=== PATIENT | female | born 1935 | race Caucasian/White ===

== ENCOUNTER 2020-09-10 17:11 | Observation (INO) | payer MEDICARE, MEDICAID, SELFPAY ==
[2020-09-10] VITALS (9 sets, daily range): BP systolic 161–198; BP diastolic 63–94; PULSE 57–71; RESP 14–20; TEMP 36.8; O2SAT 95–100; BMI 42.9; BMI 29.7
--- NOTE | 2020-09-10 17:13 | HMH.EDGENADL ---
ED Disposition Clinical Impression: CHF exacerbation Qualifiers: Heart failure type: unspecified Qualified Code(s): I50.9 - Heart failure, unspecified Disposition: Admitted As Inpatient Condition on Discharge: Good Instructions: Heart Failure Referrals: Avelino Anderson MD [Primary Care Provider] - - Critical Care Critical Care Time: No Attestation: On , the high probability of a clinically significant, sudden or life threatening deterioration of the following system(s) required my full and direct attention, intervention and personal management. The time I documented below is in addition to time spent performing reported procedures but includes the following listed in this critical care notation. Medical Decision Making - Medical Records Medical records reviewed: Yes: I reviewed the patient's medical records. - Paul Inquiry Pt receiving controlled substance: No Vital Signs: 09/10/20 17:11 09/10/20 18:00 Pulse Rate [Left Radial] 66 57 L Respiratory Rate 18 Blood Pressure [Right Arm] 198/78 H 193/77 H Blood Pressure Mean [Right Arm] 118 115 Blood Pressure Source [Right Arm] Automatic Cuff Automatic Cuff Blood Pressure Position [Right Arm] Sitting Sitting 02 Sat by Pulse Oximetry 100 100 Oxygen Delivery Method Nasal Cannula Nasal Cannula Oxygen Flow Rate (LPM) 3 - Lab Data Lab Results 09/10/20 17:25: WBC 4.7 L, RBC 4.63, Hgb 15.1, Hct 48.3 H, MCV 104.3 H, MCH 32.7 H, MCHC 31.4 L, RDW 14.7, Plt Count 165, MPV 8.2, Neut % (Auto) 63.5, Lymph % (Auto) 24.0, [place] % (Auto) 5.3, Eos % (Auto) 6.1, Baso % (Auto) 1.1, Neut # (Auto) 3.0, Lymph # (Auto) 1.1, [place] # (Auto) 0.3, Eos # (Auto) 0.3, Baso # (Auto) 0.1 09/10/20 17:25: Sodium 139, Potassium 4.5, Chloride 107, Carbon Dioxide 29, Anion Gap 7.5, BUN 21 H, Creatinine 0.90, Estimated Creat Clear 36, Estimated GFR 60, Est GFR ( Amer) 72, Glucose 237 H, Calcium 10.6 H, Troponin I 0.03, NT-Pro-B Natriuret Pep 2490 H 12/27/20 17:25: SARS-CoV-2 IgG Ab (Rapid) Negative, SARS-CoV-2 IgM Ab (Rapid) Negative 09/10/20 17:25: Total Bilirubin 0.6, Direct Bilirubin 0.3, Conjugated Bilirubin 0.0, Indirect Bilirubin 0.3, Unconjugated Bilirubin 0.3, AST 56 H, ALT 21, Alkaline Phosphatase 202 H, Total Protein 6.7, Albumin 3.3 L 09/10/20 17:49: Urine Color Yellow, Urine Appearance Clear, Urine pH 5.5, Ur Specific [place] >= 1.030, Urine Protein 2+, Urine Glucose (UA) 2+, Urine Ketones Negative, Urine Blood Trace-i, Urine Nitrate Negative, Urine Bilirubin Negative, Urine Urobilinogen 0.2, Ur Leukocyte Esterase Negative, Urine RBC Occasional, Amorphous Sediment Trace Result diagrams: 09/10/20 17:25 09/10/20 17:25 Orders (Tests/Meds): ED MEDICATIONS Discontinued Medications Generic Name Dose Route Start Last Admin Trade Name Freq PRN Reason Stop Dose Admin Nitroglycerin 0.5 gm 09/10/20 17:41 09/10/20 17:52 Nitroglycerin 1 Gm Ointment TD 09/10/20 17:42 0.5 gm ONCE ONE Administration ORDERS Category Date Time Status XR chest portable Stat Exams 09/10/20 17:14 Taken Full Resp Panel w/COVID ([facility]) Routine Lab 09/10/20 18:30 Received Troponin I Q3H Lab 09/10/20 20:15 Ordered Troponin I Q3H Lab 09/10/20 23:15 Ordered Medical Decision Narrative: Patient presents with subjective complaints of dyspnea. No hypoxia noted. EKG obtained immediately on arrival demonstrates no acute ischemic process. Cardiac enzymes will also be obtained to further work-up atypical ACS. X-ray will be obtained to evaluate for overt pulmonary edema, pleural effusions, or any consolidation/infiltrate that could be contributing. Basic lab work to ensure no hematologic or metabolic disturbance will also be obtained with a basic natruretic peptide for further work-up of cardiac dysfunction. I did do a bedside ultrasound and there does appear to be B-lines bilaterally with mild to moderately reduced ejection fraction. This is consistent with patient's presentation as she is
--- NOTE | 2020-09-10 17:14 | ECG_ITS ---
APPROVED REPORT Exam: Resting ECG HR:64 bpm ECG Measurements Heart Rate 64 AXES QRSd 94 QRS -71 QT 422 T 37 QTc 435 Conclusion Atrial fibrillation Left axis deviation Anterolateral infarct, age undetermined Abnormal ECG Electronically signed by : Avelino Anderson, 09/11/2020 07:18:44
--- NOTE | 2020-09-10 17:14 | XR_ITS ---
PROCEDURE: XR CHEST PORTABLE Referring Doctor: Raffaele Shearer Patient Age:85Y CLINICAL HISTORY: dyspnea CHF exacerbation COMPARISON: No exams were available for comparison films for comparison FINDINGS: AP portable upright chest-With no previous CXR for comparison Infiltrate at both lung bases along with bilateral pleural effusions obscure right and left hemidiaphragm. Cardiomegaly. I suspect there is some vascular congestion a could reflect component of CHF but however I would be concerned that there is additional pneumonic infiltrate accounting for the patchy infiltrate at the suprahilar region and RUL; as well as infiltrate/consolidation at the right infrahilar region and right lung base but The left chest the left upper lung brown are clear again we see density at the retrocardiac region reflecting pleural effusion and likely airspace disease/consolidation at the medial left lung base as. No prior studies for comparison. The sushant and mediastinal structures satisfactory. Prominent arthritic changes of both shoulders. Ribs grossly unremarkable of otherwise monitoring and evaluation advisor leads in place. . Chest. IMPRESSION: suspect of combination bilateral pneumonia (most pronounced right lung), along with suspect associated CHF-correlation required. Bibasilar airspace disease,, bilateral pleural effusions.-Features obscures the diaphragm bilaterally. . Bibasilar consolidation of pronounced at the right lung base. However additionally at right lung there is suprahilar infiltrate, along with patchy infiltrates elsewhere at right mid lung and right lower lobe. . Vascular engorgement. Cardiomegaly. Dictated by: Juan Luis Bird MD 09/10/2020 20:26 Juan Luis Bird MD in [place] 09/10/2020 20:26
[2020-09-10 17:39] LABS: Basophils # 0.1 K/mm3 (0-0.2); Basophils % 1.1 % (0.1-2.0); Eosinophils # 0.3 K/mm3 (0.0-0.4); Eosinophils % 6.1 % (0.1-12.0); Hematocrit 48.3 % (37.0-47.0); Hemoglobin 15.1 g/dL (12.2-16.2); Lymphocytes # 1.1 K/mm3 (0.7-4.5); Mean Corpuscular HGB Conc 31.4 g/dL (31.8-35.4); Mean Corpuscular Hemoglobin 32.7 pg (27.0-31.2); Mean Corpuscular Volume 104.3 fl (81-99); Mean Platelet Volume 8.2 fl (7.4-10.4); Monocytes # 0.3 K/mm3 (0.1-1.0); Monocytes % 5.3 % (1.7-9.3); Neutrophils % 63.5 % (37.0-80.0); Platelet Count 165 K/mm3 (142-424); Red Blood Count 4.63 M/mm3 (4.20-5.40); Red Cell Distribution Width 14.7 % (11.5-17.5); White Blood Count 4.7 K/mm3 (4.8-10.8)
[2020-09-10 17:49] LABS: Chloride 107 mmol/L (98-107); Potassium 4.5 mmoL/L (3.5-5.1); Sodium 139 mmol/L (136-145)
[2020-09-10 17:52] LABS: Anion Gap 7.5 mEq/L (5-15); Bilirubin,Unconjugated 0.3 mg/dL (0.0-1.1); Blood Urea Nitrogen 21 mg/dl (7-17); Calcium 10.6 mg/dl (8.4-10.2); Carbon Dioxide 29 mmol/L (22.0-30.0); Creatinine Clearance Estimated 36 mL/min (50-200); Estimated Glomerular Filt Rate 60 ml/min (>60); GFR (African American) 72 ML/MIN (>60); Glucose 237 mg/dl (74-100)
[2020-09-10 17:53] LABS: Alanine Aminotransferase 21 U/L (12-78); Albumin Level 3.3 g/dl (3.5-5.0); Alkaline Phosphatase 202 U/L (38-126); Aspartate Amino Transferase 56 U/L (14-36); Bilirubin,Direct 0.3 mg/dl (0.0-0.4); Bilirubin,Indirect 0.3 mg/dL (0.0-0.9); Bilirubin,Total 0.6 mg/dl (0.2-1.3); Total Protein,Serum 6.7 g/dl (6.3-8.2)
[2020-09-10 18:02] LABS: NT Pro Brain Natriuretic Pep. 2490 pg/mL (0-450)
[2020-09-10 18:05] LABS: Coronavirus 19 IgG Antibody Negative (Negative); Coronavirus 19 IgM Antibody Negative (Negative); Troponin I 0.03 ng/ml (0.00-0.034)
[2020-09-10 18:14] LABS: Microscopic, Urine URINE MICROSCOPIC (MICROSCOPIC)
[2020-09-10 18:15] LABS: Appearance,Urine CLEAR (Clear); Bilirubin,Urine Negative (Negative); Blood, Urine TRACE-I (Negative); Color,Urine YELLOW (Yellow); Glucose,Urine (UA) 2+ (Negative); Ketones,Urine Negative (Negative); Leukocyte Esterase,Urine Negative (Negative); Nitrate,Urine Negative (Negative); PH,Urine 5.5 (5.0-8.5); Protein,Urine 2+ (Negative); Specific Gravity, Urine >= 1.030 (1.005-1.030); Urobilinogen,Urine 0.2 EU/dl (0.2)
[2020-09-10 18:18] LABS: Amorphous Sediment,Urine Trace /lpf; RBC,Urine Occasional #/hpf (0-3)
[2020-09-10 18:32] LABS: Adenovirus,PCR Not Detected (NotDetected); Bordetella Pertussis Not Detected (NotDetected); Chlamydophila Pneumoniae, PCR Not Detected (NotDetected); Coronavirus 19, PCR Not Detected (NotDetected); Coronavirus 229E Not Detected (NotDetected); Coronavirus NL63 Not Detected (NotDetected); Coronavirus OC43 Not Detected (NotDetected); Coronovirus HKU1,PCR Not Detected (NotDetected); Human Metapneumovirus Not Detected (NotDetected); Influenza A, PCR Not Detected (NotDetected); Influenza AH1, 2009 Not Detected (NotDetected); Influenza AH1, PCR Not Detected (NotDetected); Influenza AH3,PCR Not Detected (NotDetected); Influenza B, PCR Not Detected (NotDetected); Mycoplasma Pneumoniae, PCR Not Detected (NotDetected); Parainfluenza 1, PCR Not Detected (NotDetected); Parainfluenza 2, PCR Not Detected (NotDetected); Parainfluenza 3, PCR Not Detected (NotDetected); Parainfluenza 4, PCR Not Detected (NotDetected); Respiratory Syncytial Virus Not Detected (NotDetected); Rhinovirus/Enterovirus Not Detected (NotDetected)
--- NOTE | 2020-09-10 20:27 | PC.NURSE ---
patient up to floor via stretcher.
[2020-09-10 21:13] LABS: Troponin I 0.03 ng/ml (0.00-0.034)
[2020-09-10 21:35] LABS: POC Glucose,Bedside 147 (70-110)
[2020-09-11] VITALS: BP 190/70; PULSE 62; PULSE 70; RESP 18; TEMP 36.7; O2SAT 94
[2020-09-11 00:11] LABS: Troponin I 0.03 ng/ml (0.00-0.034)
--- NOTE | 2020-09-11 00:32 | PC.NURSE ---
nurse made aware of blood pressure
[2020-09-11 04:00] VITALS: BP 150/85; PULSE 62; PULSE 70; RESP 20; TEMP 36.3; O2SAT 92
[2020-09-11 04:31] VITALS: BMI 28.7
--- NOTE | 2020-09-11 05:30 | PC.NURSE ---
pt has rested on and off t/o shift, wilkinson patent and draining clear pale urine, has had 3500 mL out so far this shift, no complaints of SOA or chest pain, has remained on room air with O2 sats 92-96 %, bus driver/monitor shows controlled afib, HR 62-71, seizure pads on bed, pt did complain of leg cramps early this morning, solution maker contacted and new orders received
--- NOTE | 2020-09-11 05:45 | PC.NURSE ---
pt has rested on and off t/o shift, lung sounds diminished, wilkinson patent and draining clear pale urine, 3500 mL out so far this shift, no complaints of SOA or chest pain since arriving to floor, has remained on room air with O2 sats 92-96%, monitor and storage bin tender shows controlled a fib, HR 62-71, seizure pads on bed due to history of seizures, pt did complain of leg cramps this morning, warm blankets applied to legs and pt is now resting quietly
--- NOTE | 2020-09-11 06:00 | XR_ITS ---
PROCEDURE: XR CHEST PORTABLE CLINICAL HISTORY: CHF exacerbqation COMPARISON: CR XR CHEST PORTABLE from 09/10/2020 FINDINGS: There is a slight interval improvement cardiovascular status compared to yesterday's study there is less vascular congestion noted. Mild thickening of the minor fissure is again noted. Gross generalized cardiomegaly is again noted with biventricular enlargement. Somewhat ill-defined opacities are seen in both perihilar regions and lower lobes most consistent with pneumonic infiltrates with some areas have a ground-glass appearance. Shoulder suggest clinical correlation for frozen shoulder. IMPRESSION: Interval improvement in the patient's congestive heart failure from yesterday's study, diffuse ill-defined bilateral perihilar and lower lobe opacities worrisome for pneumonic infiltrates and Covid 19 should be considered Dictated by: Dr. Cal Escalante MD 09/11/2020 08:04 Dr. Cal Escalante MD in [place] 09/11/2020 08:04
[2020-09-11 06:41] LABS: Chloride 105 mmol/L (98-107); Potassium 4.2 mmoL/L (3.5-5.1); Sodium 138 mmol/L (136-145)
[2020-09-11 06:44] LABS: POC Glucose,Bedside 199 (70-110)
[2020-09-11 06:44] LABS: Anion Gap 5.2 mEq/L (5-15); Blood Urea Nitrogen 21 mg/dl (7-17); Calcium 10.4 mg/dl (8.4-10.2); Carbon Dioxide 32 mmol/L (22.0-30.0); Creatinine Clearance Estimated 50 mL/min (50-200); Estimated Glomerular Filt Rate 60 ml/min (>60); GFR (African American) 72 ML/MIN (>60); Glucose 252 mg/dl (74-100)
[2020-09-11 06:48] LABS: Basophils % 0.7 % (0.1-2.0); Eosinophils # 0.3 K/mm3 (0.0-0.4); Eosinophils % 6.6 % (0.1-12.0); Hemoglobin 14.5 g/dL (12.2-16.2); Lymphocytes # 0.9 K/mm3 (0.7-4.5); Lymphocytes % 19.8 % (10-50); Mean Corpuscular HGB Conc 32.9 g/dL (31.8-35.4); Mean Corpuscular Hemoglobin 33.4 pg (27.0-31.2); Mean Corpuscular Volume 101.5 fl (81-99); Mean Platelet Volume 8.2 fl (7.4-10.4); Monocytes # 0.4 K/mm3 (0.1-1.0); Monocytes % 7.6 % (1.7-9.3); Neutrophils % 65.4 % (37.0-80.0); Platelet Count 161 K/mm3 (142-424); Red Blood Count 4.34 M/mm3 (4.20-5.40); Red Cell Distribution Width 14.8 % (11.5-17.5); White Blood Count 4.6 K/mm3 (4.8-10.8)
[2020-09-11 06:53] LABS: NT Pro Brain Natriuretic Pep. 2700 pg/mL (0-450)
--- NOTE | 2020-09-11 07:17 | P.CONPHA_ITS ---
[facility] Pharmacy VTE Monitoring - Patient Demographics Admission date: 09/10/20 Report Date: 09/11/20 Time: 07:17 Allergies/Adverse Reactions: Patient Allergies Penicillins [PENICILLINS] Allergy (Unknown, Verified 09/11/20 02:44) REDNESS/RASH Height: 1.63 m Weight: 76.345 kg Patient Problems: Current Active Problems CHF exacerbation (Acute) - VTE Risk Labs: VTE Related Lab Results Hgb 14.5 g/dL (12.2-16.2) 09/11/20 05:48 Hct 44.0 % (37.0-47.0) 09/11/20 05:48 Plt Count 161 K/mm3 (142-424) 09/11/20 05:48 BUN 21 mg/dl (7-17) H 09/11/20 05:48 Creatinine 0.90 mg/dl (0.52-1.04) 09/11/20 05:48 Estimated Creat Clear 50 mL/min (50-200) 09/11/20 05:48 VTE Score: 9 VTE Risk Level: Moderate Risk - Prophylaxis VTE Prophylaxis Ordered?: Yes Types of VTE Prophylaxis: TEDS Knee High, Pharmacological Location of Applied Device: Bilateral Lower Extremeties Pharmacologic Type: Other (ELIQUIS)
[2020-09-11 07:25] VITALS: BP 179/70; PULSE 64; RESP 16; TEMP 36.6; O2SAT 94
--- NOTE | 2020-09-11 07:52 | HMH.PHAINT ---
MEDICATION RECONCILIATION COMPLETED ON PATIENT USING MAR FROM RETIREMENT. -JER NICOLAS, EULAD
[2020-09-11 08:00] VITALS: PULSE 64; RESP 16; O2SAT 94
--- NOTE | 2020-09-11 08:12 | HMH.HPDC ---
General - General Admission date:: 09/10/20 Discharge date: 09/11/20 *Admission Date: 09/10/20 *Chief complaint: Dyspnea *History of present illness: Patient presents with subjective complaints of dyspnea. No hypoxia noted. EKG obtained immediately on arrival demonstrates no acute ischemic process. Cardiac enzymes will also be obtained to further work-up atypical ACS. X-ray will be obtained to evaluate for overt pulmonary edema, pleural effusions, or any consolidation/infiltrate that could be contributing. Basic lab work to ensure no hematologic or metabolic disturbance will also be obtained with a basic natruretic peptide for further work-up of cardiac dysfunction. I did do a bedside ultrasound and there does appear to be B-lines bilaterally with mild to moderately reduced ejection fraction. This is consistent with patient's presentation as she is hypertensive, with bilateral pitting edema. Nitroglycerin topical paste applied for preload/afterload reduction. She is tachypneic with mild conversational dyspnea without hypoxia. Work-up will continue as outlined above. I did consider pulmonary embolus but at this time I do believe cardiac dysfunction is more than likely culprit. BNP significantly elevated. Bilateral pleural effusions noted on x-ray. Patient received 40 mg of p.o. Lasix at facility prior to EMS being called. She has diuresed about 800 cc of urine. At this time, I would not administer IV diuretics this patient is already gently diuresing. I do believe based on her weight gain recently, dyspnea, and multiple medical comorbidities admission to the hospital for gentle IV diuresis is indicated. I discussed this with patient and family at bedside and all parties are in agreement. I discussed this with on-call provider who also was in agreement after careful discussion. Patient will be admitted to the hospital. Above note per emergency department physician. Patient recently admitted [facility] the [facility] a stay at [facility] for a humerus fracture. Transferred over from the nursing of the day because of the above complaints. When I examined her this morning after a brisk diuresis she feels much better, her breathing is better and she has no pains and has eaten breakfast well. [facility] History I have reviewed the patient's past medical history: Yes Medical History: Reports:: Atrial Fibrillation, Diabetes Mellitus Type 2, Hypertension Denies:: Cancer, Diabetes Mellitus Type 1, Internal Pacemaker, MRSA *Have you ever received a pneumonia vaccine?: No *Have you received a flu vaccine this season?: No Laterality Cases: Right: Total Knee Replacement Other Surgeries: No: Pacemaker Amputation: No - *Social History Alcohol Intake: never *Occupational Status:: retired Housing: penitentiary *Travel in the last 8 weeks: None Family Hx:: Unable to obtain Review of Systems - Review of Systems Review of systems:: pertinent systems reviewed and negative unless documented below Difficult history secondary to patient's hard of hearing status but no other complaints this morning Exam Vital signs and Labs for Last 24 Hours: Temp Pulse Resp BP Pulse Ox 97.8 F 64 16 179/70 H 94 L 09/11/20 07:25 09/11/20 07:25 09/11/20 07:25 09/11/20 07:25 09/11/20 07:25 Laboratory Results - last 24 hr 09/10/20 17:25: WBC 4.7 L, RBC 4.63, Hgb 15.1, Hct 48.3 H, MCV 104.3 H, MCH 32.7 H, MCHC 31.4 L, RDW 14.7, Plt Count 165, MPV 8.2, Neut % (Auto) 63.5, Lymph % (Auto) 24.0, [place] % (Auto) 5.3, Eos % (Auto) 6.1, Baso % (Auto) 1.1, Neut # (Auto) 3.0, Lymph # (Auto) 1.1, [place] # (Auto) 0.3, Eos # (Auto) 0.3, Baso # (Auto) 0.1 09/10/20 17:25: Sodium 139, Potassium 4.5, Chloride 107, Carbon Dioxide 29, Anion Gap 7.5, BUN 21 H, Creatinine 0.90, Estimated Creat Clear 36, Estimated GFR 60, Est GFR ( Amer) 72, Glucose 237 H, Calcium 10.6 H, Troponin I 0.03, NT-Pro-B Natriuret Pep 2490 H 09/10/20 17:25: SARS-CoV-2
--- NOTE | 2020-09-11 08:19 | DIET.NUTRFU ---
Nutrition consult completed to best ability, pt not appropriate for in depth diet education dt cognitive ability/age. Pt given education on low sodium/heart healthy and diabetic diet.
[2020-09-11 08:21] VITALS: BMI 28.5
--- NOTE | 2020-09-11 10:33 | SW/DCPLANNER ---
PATIENT IS DISCHARGING BACK TO [facility] TODAY AND I HAVE FAXED SIGNED DISCHARGE SUMMARY AND COVID RESULTS... SPOKE WITH [employer]ER AND SHE SAID THEY ARE EXPECTING HER RETURN..
== END 2020-09-11 10:15 ==
LOC: ER 18:41 → 2ND 19:00
PROVIDERS: Admitting Provider Emergency Medicine; Emergency Provider Emergency Medicine; PCP Internal Medicine Adolescent Medicine; Visit Provider Internal Medicine Adolescent Medicine
DX: I11.0 Hypertensive heart disease with heart failure (principal); I50.9 Heart failure, unspecified; I48.0 Paroxysmal atrial fibrillation; J44.9 Chronic obstructive pulmonary disease, unspecified; G40.409 Other generalized epilepsy and epileptic syndromes, not intractable, without status epilepticus; S32.434D Nondisplaced fracture of anterior column [iliopubic] of right acetabulum, subsequent encounter for fracture with routine healing; Z96.651 Presence of right artificial knee joint; Z88.0 Allergy status to penicillin; Z79.4 Long term (current) use of insulin; Z79.01 Long term (current) use of anticoagulants; Z79.899 Other long term (current) drug therapy
CPT/HCPCS: 36415; 71045; 80048; 80076; 81001; 82962; 83880; 84484; 85025; 86328; 87581; 87633; 87798; 93005; 96374; 99284; G0378

== ENCOUNTER 2020-10-03 21:37 | Emergency (ER) | payer MEDICARE, MEDICAID, SELFPAY ==
[2020-10-03 21:37] VITALS: BMI 29.1
--- NOTE | 2020-10-03 21:45 | XR_ITS ---
PROCEDURE: XR CHEST PORTABLE CLINICAL HISTORY: seizure COMPARISON: CR XR CHEST PORTABLE from 09/10/2020 CR XR CHEST PORTABLE from 09/11/2020 FINDINGS: There is cardiomegaly without failure. The lungs are clear without infiltrates, suspicious nodules, or pleural effusions. No acute bony abnormalities. IMPRESSION: Cardiomegaly otherwise negative Dictated by: Thad Darling MD 10/04/2020 06:21 Thad Darling MD in [place] 10/04/2020 06:21
--- NOTE | 2020-10-03 21:45 | CT_ITS ---
PROCEDURE: CT HEAD/BRAIN WO CON CLINICAL INDICATION: Seizure Seizures, syncope COMPARISON: No exams were available for comparison TECHNIQUE: Axial images obtained. All CT scans at the facility use one or more dose reduction, viz: automated exposure control, ma/kV adjustment per patient size (including targeted exams where dose is matched to indication, i.e. head), or iterative reconstruction technique. FINDINGS: No midline shift, mass effect, intracranial hemorrhage, hydrocephalus, or extra-axial fluid collection is evident. There is generalized atrophy with hypoattenuation of the periventricular white matter consistent with microangiopathic changes. The calvarium has an unremarkable appearance. No mastoid effusion. No sinus air-fluid level. IMPRESSION: No acute intracranial finding Dictated by: Thad Darling MD 10/04/2020 07:20 Thad Darling MD in [place] 10/04/2020 07:20
--- NOTE | 2020-10-03 21:45 | XR_ITS ---
PROCEDURE: XR PELVIS 1-2V CLINICAL INDICATION: seizure Right hip pain COMPARISON: No exams were available for comparison TECHNIQUE: XR Pelvis AP View FINDINGS: There are no previous exams available for comparison. A right intramedullary tigist is present within the proximal femur. There is a healing fracture involving the junction of the right superior pubic ramus with the ischial in and also 1 involving the right inferior pubic ramus. In addition, there is a minimally fracture involving the the left superior pubic ramus medially age indeterminate. Osteoarthritic changes of both hips. No lytic or blastic change. IMPRESSION: Bilateral pubic rami fractures as described above. The fractures on the right are old. The left superior pubic ramus fracture is age indeterminate. Dictated by: Thad Darling MD 10/04/2020 06:20 Thad Darling MD in [place] 10/04/2020 06:20
--- NOTE | 2020-10-03 21:48 | CT_ITS ---
PROCEDURE: CT CERVICAL SPINE WO CON CLINICAL INDICATION: seizure Pain, neck injury COMPARISON: No exams were available for comparison TECHNIQUE: Axial images obtained with sagittal and coronal reformats. All CT scans at the facility use one or more dose reduction, viz: automated exposure control, ma/kV adjustment per patient size (including targeted exams where dose is matched to indication, i.e. head), or iterative reconstruction technique. Axial spiral CT scanning performed of the cervical spine beginning at the base of the skull and continuing to the upper T-spine. 3-D multiplanar reconstruction with 3-D manipulation of volumetric data set in image rendering was completed by the radiologist and/or technologist with the supervision of the radiologist on independent workstation. FINDINGS: There is an old fracture at the base of the odontoid process with nonunion consistent with a type 2 fracture. Soft tissue calcification noted along the dorsal aspect of odontoid. Multilevel cervical spondylosis. 3 mm anterolisthesis C3 on C4 and 2 mm anterolisthesis C4 on C5. Facet arthropathy and uncovertebral arthropathy. Bilateral foraminal narrowing at C3-C4 C4-C5 C5-C6 and C6-C7. Degenerative disc disease C5-C6 and C6-C7. There is exaggeration of the upper thoracic kyphosis. No acute fracture or dislocation. IMPRESSION: 1. 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 2. No acute fracture. 3. Multilevel cervical spondylosis as described above. Dictated by: Thad Darling MD 10/04/2020 07:31 Thad Darling MD in [place] 10/04/2020 07:31
[2020-10-03 21:50] VITALS: BP 205/76; PULSE 62; RESP 18; TEMP 36.8; O2SAT 97; BMI 29.1
[2020-10-03 22:00] VITALS: BP 209/76; PULSE 66; RESP 15; O2SAT 99
--- NOTE | 2020-10-03 22:28 | PC.NURSE ---
assisted to bathroom. ambulated approx 40 feet without incident and standby-minimal assist only. vss. removed soiled clothing and covered in warm blankets. radiology technologist at bedside at this time.
[2020-10-03 22:30] VITALS: BP 197/78; PULSE 68; RESP 17; O2SAT 98
--- NOTE | 2020-10-03 22:31 | HMH.EDSEIZ ---
ED Disposition Clinical Impression: Epileptic seizure Qualifiers: Epilepsy type: unspecified Intractability: not intractable Status epilepticus: without status epilepticus Qualified Code(s): G40.909 - Epilepsy, unspecified, not intractable, without status epilepticus UTI (urinary tract infection) Qualifiers: Urinary tract infection type: site unspecified Hematuria presence: without hematuria Qualified Code(s): N39.0 - Urinary tract infection, site not specified Disposition: Home, Self-Care Condition on Discharge: Good Instructions: DI for Seizure Disorder -- Adult Additional Instructions: fluids and call pcp about urine culture Prescriptions: levoFLOXacin [Levaquin 500mg tab] 500 mg PO DAILY #7 tab Transmission Status: Pending to [facility] Referrals: Avelino Anderson MD [Primary Care Provider] - - Critical Care Critical Care Time: No Attestation: On 10/03/20, the high probability of a clinically significant, sudden or life threatening deterioration of the following system(s) required my full and direct attention, intervention and personal management. The time I documented below is in addition to time spent performing reported procedures but includes the following listed in this critical care notation. Medical Decision Making - Medical Records Medical records reviewed: Yes: I reviewed the patient's medical records. - Paul Inquiry Pt receiving controlled substance: No Vital Signs: 10/03/20 21:50 10/03/20 22:00 10/03/20 22:30 Temperature 98.2 F Temperature Source Oral Pulse Rate [Right] 62 66 68 Respiratory Rate 18 15 17 Blood Pressure [Right Arm] 205/76 H 209/76 H 197/78 H Blood Pressure Mean [Right Arm] 119 120 117 Blood Pressure Source [Right Arm] Automatic Cuff Automatic Cuff Automatic Cuff Blood Pressure Position [Right Arm] Supine Supine Supine 02 Sat by Pulse Oximetry 97 99 98 Oxygen Delivery Method Room Air Room Air Room Air 10/03/20 23:00 10/03/20 23:30 Temperature Temperature Source Pulse Rate [Right] 66 69 Respiratory Rate 17 17 Blood Pressure [Right Arm] 194/81 H 199/78 H Blood Pressure Mean [Right Arm] 118 118 Blood Pressure Source [Right Arm] Automatic Cuff Automatic Cuff Blood Pressure Position [Right Arm] Supine Supine 02 Sat by Pulse Oximetry 98 98 Oxygen Delivery Method Room Air Room Air - Lab Data Lab results reviewed: Yes: I reviewed the patient's lab results. Lab Results 10/03/20 23:30: WBC 7.7, RBC 4.54, Hgb 15.0, Hct 44.5, MCV 98.1, MCH 33.1 H, MCHC 33.7, RDW 14.3, Plt Count 180, MPV 7.8, Neut % (Auto) 76.5, Lymph % (Auto) 15.7, [place] % (Auto) 5.2, Eos % (Auto) 1.9, Baso % (Auto) 0.7, Neut # (Auto) 5.9, Lymph # (Auto) 1.2, [place] # (Auto) 0.4, Eos # (Auto) 0.2, Baso # (Auto) 0.1, ESR 50 H 10/03/20 23:30: Sodium 135 L, Potassium 4.5, Chloride 102, Carbon Dioxide 27, Anion Gap 10.5, BUN 24 H, Creatinine 0.80, Estimated Creat Clear 52, Estimated GFR 68, Est GFR ( Amer) 82, Glucose 187 H, Calcium 10.0, Total Bilirubin 0.6, AST 29, ALT 14, Alkaline Phosphatase 186 H, C-Reactive Protein 1.0, Total Protein 6.9, Albumin 3.7, Globulin 3.2, Albumin/Globulin Ratio 1.2, Procalcitonin 0.075 10/03/20 23:30: Urine Color Yellow, Urine Appearance Clear, Urine pH 7.0, Ur Specific [place] 1.025, Urine Protein 3+, Urine Glucose (UA) 2+, Urine Ketones Negative, Urine Blood Negative, Urine Nitrate Negative, Urine Bilirubin Negative, Urine Urobilinogen 0.2, Ur Leukocyte Esterase Negative, Urine WBC 5-10, Urine Bacteria 2+, Urine Mucus 1+ Result diagrams: 10/03/20 23:30 10/03/20 23:30 Orders (Tests/Meds): ED MEDICATIONS Generic Name Dose Route Start Last Admin Trade Name Freq PRN Reason Stop Dose Admin Sodium Chloride 1,000 mls @ 999 mls/hr 10/03/20 21:45 Sod Chlor 0.9% 1000ml Bag IV 10/03/20 22:45 .Q1H1M GILA Ceftriaxone Sodium 1 gm/ 50 mls @ 100 mls/hr 10/04/20 00:30 Sodium Chloride IV 10/18/20 00:29 Q24H IGLA Protocol
[2020-10-03 23:00] VITALS: BP 194/81; PULSE 66; RESP 17; O2SAT 98
[2020-10-03 23:30] VITALS: BP 199/78; PULSE 69; RESP 17; O2SAT 98
[2020-10-03 23:36] LABS: Microscopic, Urine URINE MICROSCOPIC (MICROSCOPIC)
[2020-10-03 23:42] LABS: Basophils # 0.1 K/mm3 (0-0.2); Basophils % 0.7 % (0.1-2.0); Eosinophils # 0.2 K/mm3 (0.0-0.4); Eosinophils % 1.9 % (0.1-12.0); Hematocrit 44.5 % (37.0-47.0); Lymphocytes # 1.2 K/mm3 (0.7-4.5); Lymphocytes % 15.7 % (10-50); Mean Corpuscular HGB Conc 33.7 g/dL (31.8-35.4); Mean Corpuscular Hemoglobin 33.1 pg (27.0-31.2); Mean Corpuscular Volume 98.1 fl (81-99); Mean Platelet Volume 7.8 fl (7.4-10.4); Monocytes # 0.4 K/mm3 (0.1-1.0); Monocytes % 5.2 % (1.7-9.3); Neutrophils # 5.9 K/mm3 (1.8-7.8); Neutrophils % 76.5 % (37.0-80.0); Platelet Count 180 K/mm3 (142-424); Red Blood Count 4.54 M/mm3 (4.20-5.40); Red Cell Distribution Width 14.3 % (11.5-17.5); White Blood Count 7.7 K/mm3 (4.8-10.8)
[2020-10-03 23:47] LABS: Alanine Aminotransferase 14 U/L (12-78); Albumin Level 3.7 g/dl (3.5-5.0); Albumin/Globulin Ratio 1.2 (1.1-1.8); Alkaline Phosphatase 186 U/L (38-126); Anion Gap 10.5 mEq/L (5-15); Aspartate Amino Transferase 29 U/L (14-36); Bilirubin,Total 0.6 mg/dl (0.2-1.3); Blood Urea Nitrogen 24 mg/dl (7-17); Carbon Dioxide 27 mmol/L (22.0-30.0); Chloride 102 mmol/L (98-107); Creatinine Clearance Estimated 52 mL/min (50-200); Estimated Glomerular Filt Rate 68 ml/min (>60); GFR (African American) 82 ML/MIN (>60); Globulin 3.2 g/dL (1.3-3.2); Glucose 187 mg/dl (74-100); Potassium 4.5 mmoL/L (3.5-5.1); Sodium 135 mmol/L (136-145); Total Protein,Serum 6.9 g/dl (6.3-8.2)
[2020-10-03 23:49] LABS: Appearance,Urine CLEAR (Clear); Bilirubin,Urine Negative (Negative); Blood, Urine Negative (Negative); Color,Urine YELLOW (Yellow); Glucose,Urine (UA) 2+ (Negative); Ketones,Urine Negative (Negative); Leukocyte Esterase,Urine Negative (Negative); Nitrate,Urine Negative (Negative); Protein,Urine 3+ (Negative); Specific Gravity, Urine 1.025 (1.005-1.030); Urobilinogen,Urine 0.2 EU/dl (0.2)
[2020-10-04] VITALS: BP 191/81; PULSE 71; RESP 17; O2SAT 99
[2020-10-04 00:06] LABS: Procalcitonin 0.075 ng/mL (0.0-2.0)
[2020-10-04 00:18] LABS: Bacteria,Urine 2+ /lpf; Erythrocyte Sedimentation Rate 50 mm/hr (0-30)
[2020-10-04 00:19] LABS: Mucus,Urine 1+ /lpf
[2020-10-04 00:30] VITALS: BP 192/78; PULSE 77; RESP 16; O2SAT 99
[2020-10-04 00:33] VITALS: BP 112/73; PULSE 73; RESP 16; TEMP 36.8; O2SAT 98
[2020-10-07 12:41] LABS: Levetiracetam (Keppra) 50.1 ug/mL (10.0-40.0)
== END 2020-10-04 01:58 | disposition home or self-care (01) ==
PROVIDERS: Emergency Provider Emergency Medicine; PCP Internal Medicine Adolescent Medicine
DX: G40.909 Epilepsy, unspecified, not intractable, without status epilepticus (principal); N30.00 Acute cystitis without hematuria; B96.89 Other specified bacterial agents as the cause of diseases classified elsewhere; E11.9 Type 2 diabetes mellitus without complications; I10 Essential (primary) hypertension; I48.91 Unspecified atrial fibrillation; Z88.0 Allergy status to penicillin; Z79.899 Other long term (current) drug therapy
CPT/HCPCS: 70450; 71045; 72125; 72170; 80053; 80177; 81001; 84145; 85025; 85651; 86140; 87086; 87088; 87186; 96365; 96375; 99283

== ENCOUNTER 2020-10-20 14:38 | Emergency (ER) | payer MEDICARE, MEDICAID, SELFPAY ==
[2020-10-20 14:39] VITALS: BP 162/60; PULSE 43; RESP 20; TEMP 36.6; O2SAT 99; BMI 20.5
--- NOTE | 2020-10-20 14:40 | ECG_ITS ---
APPROVED REPORT Exam: Resting ECG HR:48 bpm ECG Measurements Heart Rate 48 AXES QRSd 96 QRS 17 QT 508 T 130 QTc 453 Conclusion Atrial fibrillation with slow ventricular response T wave abnormality, consider anterolateral ischemia or digitalis effect Abnormal ECG Electronically signed by : Avelino Anderson, 10/21/2020 08:51:02
[2020-10-20 14:55] VITALS: BMI 20.5
--- NOTE | 2020-10-20 14:56 | XR_ITS ---
PROCEDURE: XR CHEST PORTABLE CLINICAL HISTORY: cough Chest pain cough weakness COMPARISON: CR XR CHEST PORTABLE from 09/10/2020 CR XR CHEST PORTABLE from 09/11/2020 CR XR CHEST PORTABLE from 10/03/2020 FINDINGS: There is cardiomegaly without failure. Minimal blunting of the right CP angle. Patchy density is noted in the right lung base and may be due to an area of atelectasis or infiltrate. The remaining lungs are clear . There are severe degenerative changes of the shoulders IMPRESSION: Cardiomegaly with atelectasis or infiltrate in the right lung base with small right effusion Dictated by: Thad Darling MD 10/20/2020 16:49 Thad Darling MD in [facility] 10/20/2020 16:49
[2020-10-20 15:03] LABS: Basophils % 0.8 % (0.1-2.0); Eosinophils # 0.2 K/mm3 (0.0-0.4); Eosinophils % 3.9 % (0.1-12.0); Hematocrit 43.6 % (37.0-47.0); Hemoglobin 14.3 g/dL (12.2-16.2); Lymphocytes # 1.3 K/mm3 (0.7-4.5); Lymphocytes % 28.6 % (10-50); Mean Corpuscular HGB Conc 32.7 g/dL (31.8-35.4); Mean Corpuscular Hemoglobin 32.1 pg (27.0-31.2); Mean Corpuscular Volume 98.1 fl (81-99); Mean Platelet Volume 8.1 fl (7.4-10.4); Monocytes # 0.3 K/mm3 (0.1-1.0); Monocytes % 7.1 % (1.7-9.3); Neutrophils # 2.8 K/mm3 (1.8-7.8); Neutrophils % 59.6 % (37.0-80.0); Platelet Count 130 K/mm3 (142-424); Red Blood Count 4.45 M/mm3 (4.20-5.40); Red Cell Distribution Width 14.5 % (11.5-17.5); White Blood Count 4.6 K/mm3 (4.8-10.8)
[2020-10-20 15:09] VITALS: BP 162/60; PULSE 42; RESP 18; O2SAT 99
[2020-10-20 15:12] LABS: Activated Partial Thrombo Time 27.3 seconds (23.6-34.0); INR 0.92 (0.9-1.1); Prothrombin Time 10.3 seconds (9.4-11.8)
[2020-10-20 15:38] LABS: Chloride 104 mmol/L (98-107); Sodium 137 mmol/L (136-145)
[2020-10-20 15:39] LABS: Potassium 4.5 mmoL/L (3.5-5.1)
[2020-10-20 15:41] LABS: Alanine Aminotransferase 21 U/L (12-78); Alkaline Phosphatase 177 U/L (38-126); Aspartate Amino Transferase 39 U/L (14-36); Bilirubin,Total 0.6 mg/dl (0.2-1.3); Blood Urea Nitrogen 30 mg/dl (7-17); Creatinine Clearance Estimated 35 mL/min (50-200); Estimated Glomerular Filt Rate 68 ml/min (>60); GFR (African American) 82 ML/MIN (>60)
[2020-10-20 15:42] LABS: Albumin Level 3.7 g/dl (3.5-5.0); Albumin/Globulin Ratio 1.1 (1.1-1.8); Anion Gap 7.5 mEq/L (5-15); Carbon Dioxide 30 mmol/L (22.0-30.0); Globulin 3.4 g/dL (1.3-3.2); Glucose 105 mg/dl (74-100); Total Protein,Serum 7.1 g/dl (6.3-8.2)
[2020-10-20 15:51] LABS: NT Pro Brain Natriuretic Pep. 1550 pg/mL (0-450)
[2020-10-20 15:56] LABS: Troponin I 0.01 ng/ml (0.00-0.034)
--- NOTE | 2020-10-20 16:41 | HMH.EDCP ---
ED Disposition Clinical Impression: Atrial fibrillation with slow ventricular response Chest pain Qualifiers: Chest pain type: unspecified Qualified Code(s): R07.9 - Chest pain, unspecified Disposition: Home, Self-Care Condition on Discharge: Good Instructions: DI for Atypical Chest Pain Referrals: Avelino Anderson MD [Primary Care Provider] - - Critical Care Critical Care Time: No Attestation: On 10/20/20, the high probability of a clinically significant, sudden or life threatening deterioration of the following system(s) required my full and direct attention, intervention and personal management. The time I documented below is in addition to time spent performing reported procedures but includes the following listed in this critical care notation. Medical Decision Making - Medical Records Medical records reviewed: Yes: I reviewed the patient's medical records. - Paul Inquiry Pt receiving controlled substance: No Vital Signs: 10/20/20 14:39 10/20/20 15:09 Temperature 97.8 F Temperature Source Oral Pulse Rate [Left Radial] 43 L 42 L Respiratory Rate 20 18 Blood Pressure [Right Arm] 162/60 H 162/60 H Blood Pressure Mean [Right Arm] 94 94 Blood Pressure Source [Right Arm] Automatic Cuff Automatic Cuff Blood Pressure Position [Right Arm] Sitting 02 Sat by Pulse Oximetry 99 99 Oxygen Delivery Method Room Air Room Air - Lab Data Lab Results 10/20/20 14:46: WBC 4.6 L, RBC 4.45, Hgb 14.3, Hct 43.6, MCV 98.1, MCH 32.1 H, MCHC 32.7, RDW 14.5, Plt Count 130 L, MPV 8.1, Neut % (Auto) 59.6, Lymph % (Auto) 28.6, [place] % (Auto) 7.1, Eos % (Auto) 3.9, Baso % (Auto) 0.8, Neut # (Auto) 2.8, Lymph # (Auto) 1.3, [place] # (Auto) 0.3, Eos # (Auto) 0.2, Baso # (Auto) 0.0 10/20/20 14:46: PT 10.3, INR 0.92, APTT 27.3 10/20/20 14:46: Sodium 137, Potassium 4.5, Chloride 104, Carbon Dioxide 30, Anion Gap 7.5, BUN 30 H, Creatinine 0.80, Estimated Creat Clear 35, Estimated GFR 68, Est GFR ( Amer) 82, Glucose 105 H, Calcium 10.0, Total Bilirubin 0.6, AST 39 H, ALT 21, Alkaline Phosphatase 177 H, Troponin I 0.01, NT-Pro-B Natriuret Pep 1550 H, Total Protein 7.1, Albumin 3.7, Globulin 3.4 H, Albumin/Globulin Ratio 1.1 Result diagrams: 10/20/20 14:46 10/20/20 14:46 Orders (Tests/Meds): ORDERS Category Date Time Status XR chest portable Stat Exams 10/20/20 14:56 Taken Troponin I Q3H Lab 10/20/20 18:00 Ordered Troponin I Q3H Lab 10/20/20 21:00 Ordered - Radiology Data #1 Image(s): Chest Image Reviewed: Yes I reviewed the patient's radiology results, Yes I reviewed the patient's radiology image chronic cardiomegally, no infiltrate - ECG Data Tracing #1 Bradycardic rate of 48 bpm, prolonged QTC. Atrial fibrillation with slow ventricular response. ECG initial impression date: 10/20/20 ECG initial impression time: 14:42 - Reevaluation(s) Time: 16:49 Reevaluation #1: On reevaluation, the patient is feeling much better. Negative troponin. Patient is bradycardic, however reviewing her records she is chronically bradycardic. He is asking for something to eat. We did treat her in the emergency department without difficulties. At this time, the patient stable for discharge. I did give strict return precautions in the sun for any change in symptoms. Verbalized understanding. Medical Decision Narrative: 85-year-old female presented to the emergency department with chest discomfort. Patient is feeling fine initially on examination. Work-up will be initiated. Chest Pain HPI - General Chief Complaint: Chest Pain Stated Complaint: HEADACHE Time Seen by Provider: 10/20/20 14:45 Mode of Arrival: EMS Limitations: No Limitations Description of Symptoms (Recalled from ER Triage Doc. by RN): pt states that she has a NOGUEIRA and chest pain for approx 30 minutes - History of Present Illness HPI narrative: This is a 85-year-old female presented with chest discomfort. The patient is accom
[2020-10-20 16:53] VITALS: BP 162/60; PULSE 42; RESP 18; TEMP 36.6; O2SAT 98
== END 2020-10-20 16:55 | disposition home or self-care (01) ==
PROVIDERS: Emergency Provider Emergency Medicine; PCP Internal Medicine Adolescent Medicine
DX: I48.0 Paroxysmal atrial fibrillation (principal); I10 Essential (primary) hypertension; E11.9 Type 2 diabetes mellitus without complications; Z88.0 Allergy status to penicillin; Z79.899 Other long term (current) drug therapy; I50.9 Heart failure, unspecified
CPT/HCPCS: 71045; 80053; 83880; 84484; 85025; 85610; 85730; 93005; 99283

== ENCOUNTER → 2020-11-29 12:00 | Outpatient (CLI) | payer MEDICARE, MEDICAID, SELFPAY ==
[2020-11-29 13:14] LABS: Basophils # 0.1 K/mm3 (0-0.2); Basophils % 0.8 % (0.1-2.0); Eosinophils # 0.3 K/mm3 (0.0-0.4); Eosinophils % 4.4 % (0.1-12.0); Hematocrit 41.9 % (37.0-47.0); Hemoglobin 13.7 g/dL (12.2-16.2); Lymphocytes # 1.3 K/mm3 (0.7-4.5); Lymphocytes % 19.2 % (10-50); Mean Corpuscular HGB Conc 32.7 g/dL (31.8-35.4); Mean Corpuscular Volume 97.9 fl (81-99); Monocytes # 0.6 K/mm3 (0.1-1.0); Monocytes % 8.5 % (1.7-9.3); Neutrophils # 4.5 K/mm3 (1.8-7.8); Neutrophils % 67.1 % (37.0-80.0); Platelet Count 207 K/mm3 (142-424); Red Blood Count 4.28 M/mm3 (4.20-5.40); White Blood Count 6.8 K/mm3 (4.8-10.8)
[2020-11-29 13:28] LABS: Hemoglobin A1C 10.2 % (4.0-6.0)
[2020-11-29 13:31] LABS: Chloride 102 mmol/L (98-107); Sodium 136 mmol/L (136-145)
[2020-11-29 13:32] LABS: Potassium 4.4 mmoL/L (3.5-5.1)
[2020-11-29 13:34] LABS: Alanine Aminotransferase 11 U/L (12-78); Anion Gap 10.4 mEq/L (5-15); Aspartate Amino Transferase 22 U/L (14-36); Blood Urea Nitrogen 21 mg/dl (7-17); Carbon Dioxide 28 mmol/L (22.0-30.0); Estimated Glomerular Filt Rate 68 ml/min (>60); GFR (African American) 82 ML/MIN (>60)
[2020-11-29 13:35] LABS: Albumin Level 3.3 g/dl (3.5-5.0); Albumin/Globulin Ratio 1.1 (1.1-1.8); Alkaline Phosphatase 169 U/L (38-126); Bilirubin,Total 0.8 mg/dl (0.2-1.3); Calcium 9.9 mg/dl (8.4-10.2); Glucose 253 mg/dl (74-100); Magnesium 1.8 mg/dl (1.6-2.3); Total Protein,Serum 6.3 g/dl (6.3-8.2)
[2020-11-29 14:04] LABS: Thyroid Stimulating Hormone 2.33 uIU/mL (0.465-4.68)
== END ==
PROVIDERS: Visit Provider Internal Medicine Adolescent Medicine
DX: E11.9 Type 2 diabetes mellitus without complications (principal); R60.9 Edema, unspecified; I48.20 Chronic atrial fibrillation, unspecified; Z79.4 Long term (current) use of insulin
CPT/HCPCS: 36415; 80053; 83036; 83735; 84443; 85025

== ENCOUNTER 2021-02-07 21:00 | Inpatient (IN) | payer MEDICARE, MEDICAID, SELFPAY ==
[2021-02-07] VITALS (12 sets, daily range): BP systolic 120–183; BP diastolic 66–103; PULSE 49–75; RESP 13–18; TEMP 36.6–36.8; O2SAT 96–98; BMI 25.7; BMI 22.4
--- NOTE | 2021-02-07 | IR_ITS ---
APPROVED REPORT PROCEDURES Left heart catheterization Left ventriculogram Selective coronary angiogram Drug-eluting stent deployment to the proximal and mid left anterior descending artery in a contiguous manner using 3 drug-eluting stents placed in a contiguous manner Drug-eluting stent deployment to the proximal and mid circumflex artery using 2 drug-eluting stents placed in a contiguous manner INDICATION Acute anterior ST elevation myocardial infarction, Multivessel coronary disease, Severe debility with dementia and frailty Informed consent was obtained prior to the procedure. TECHNIQUE One percent lidocaine used to anesthetize the right anterior aspect of the wrist. The right radial artery was accessed via the Seldinger technique. A 6 [place] sheath was placed in the right radial artery. 2.5 mg of verapamil, 800 mcg of nitroglycerin, 1mg Lidocaine were given through the arterial sheath. Immediately the small J-wire would not pass through the radial artery therefore an advantage wire was used to carefully negotiate the severe tortuosity of the radial artery and most importantly the brachial artery. A 6 [place] JL 3 guide catheter was gently negotiated and torqued through the tortuosity making it into the a sending aortic root and able to cannulate the left main artery. Angiography demonstrated occlusion of the mid LAD. The ACT was at a range from the heparin given in the emergency department. A Choice PT extra-support wire was advanced through the calcified occlusion and a 2 mm balloon was used to predilate the stenosis after a 2.5 mm balloon would not pass through the calcified occlusion. The 2 mm balloon was inflated and predilated and this was followed by a 2.5 mm balloon also used to post dilate. Stenting could not be performed due to calcification therefore a guide liner was advanced and a 2.5 x 22 mm resolute [place] stent was deployed at 25 burton in the proximal LAD. This allowed advancement of the guide liner where an additional 2.5 x 22 mm resolute [place] stent was then deployed at 20 burton in the mid LAD. The balloon was brought back and deployed at 25 burton to mesh the 2 stents. Following this a 3 mm x 22 mm resolute [place] stent was then deployed in the proximal LAD overlapping the first stent which was deployed. The 3 mm stent was deployed at 20 burton. Excellent angiographic results were obtained with SAVANNAH 0 flow being present at the beginning of the procedure and SAVANNAH-3 flow at the end of the procedure. Because of patient's frailty and debility it was felt the dominant circumflex artery should be stented due to the severe stenosis in the unlikely event patient would ever be brought back to the [facility] especially with the tenuous radial access. The Choice PT extra-support wire was placed into the circumflex artery and predilatation was made. Despite predilatation patient still required a telescope guide catheter to allow delivery of a balloon of 2.5 mm in diameter to predilate the stenosis. This was followed by a 3 mm x 22 mm resolute [place] stent deployed in the ostial proximal portion of the circumflex artery at 25 burton. An additional 3 mm x 22 mm resolute [place] stent was then deployed distal to the first stent and deployed at 20 burton. The balloon was brought back and deployed at 25 burton to mesh the 2 stents. Excellent angiographic results were obtained with SAVANNAH-3 flow down the vessel before and after the procedure. After achieving excellent angiographic results the wires were removed and angiography was performed which demonstrated wide patency of both the LAD and the circumflex artery. The JL 3 guide catheter was then used to perform right coronary artery angiography as well as perform left heart catheterization and left ventri
--- NOTE | 2021-02-07 20:53 | ECG_ITS ---
APPROVED REPORT Exam: Resting ECG HR:56 bpm ECG Measurements Heart Rate 56 AXES QRSd 112 QRS -23 QT 446 T 5 QTc 430 Conclusion Atrial fibrillation with slow ventricular response Minimal voltage criteria for LVH, may be normal variant Anteroseptal infarct, possibly acute Lateral injury pattern ACUTE PR Abnormal ECG Electronically signed by : Avelino Anderson, 02/10/2021 07:30:27
--- NOTE | 2021-02-07 21:07 | XR_ITS ---
PROCEDURE INFORMATION: Exam: XR Chest Exam date and time: 02/07/2021 9:07 PM Age: 85 years old Clinical indication: Shortness of breath and other: Sharp crushing chest pain; Patient HX: Sharp crushing chest pain. Stemi alert TECHNIQUE: Imaging protocol: XR of the chest. Views: 1 view. COMPARISON: CR XR CHEST PORTABLE 10/20/2020 3:47 PM FINDINGS: Lungs: In the lung bases there is atelectasis and scarring but cannot exclude early developing pneumonia. Pleural spaces: Unremarkable. No pleural effusion. No pneumothorax. Heart/Mediastinum: Cardiomegaly. Bones/joints: Mild degenerative changes involving bilateral shoulders. IMPRESSION: In the lung bases there is atelectasis and scarring but cannot exclude early developing pneumonia.
--- NOTE | 2021-02-07 21:19 | PC.NURSE ---
STEMI alert and dr. redd called at 2057
[2021-02-07 21:20] LABS: Basophils # 0.1 K/mm3 (0-0.2); Basophils % 0.8 % (0.1-2.0); Eosinophils # 0.1 K/mm3 (0.0-0.4); Eosinophils % 1.7 % (0.1-12.0); Hematocrit 44.7 % (37.0-47.0); Lymphocytes # 1.1 K/mm3 (0.7-4.5); Lymphocytes % 15.9 % (10-50); Mean Corpuscular HGB Conc 33.5 g/dL (31.8-35.4); Mean Corpuscular Hemoglobin 32.2 pg (27.0-31.2); Mean Corpuscular Volume 96.1 fl (81-99); Mean Platelet Volume 8.6 fl (7.4-10.4); Monocytes # 0.3 K/mm3 (0.1-1.0); Monocytes % 4.9 % (1.7-9.3); Neutrophils # 5.3 K/mm3 (1.8-7.8); Neutrophils % 76.5 % (37.0-80.0); Platelet Count 134 K/mm3 (142-424); Red Blood Count 4.65 M/mm3 (4.20-5.40); Red Cell Distribution Width 14.2 % (11.5-17.5); White Blood Count 6.9 K/mm3 (4.8-10.8)
[2021-02-07 21:21] LABS: Anion Gap 7.9 mEq/L (5-15); Blood Urea Nitrogen 23 mg/dl (7-17); Calcium 9.6 mg/dl (8.4-10.2); Carbon Dioxide 30 mmol/L (22.0-30.0); Chloride 98 mmol/L (98-107); Creatinine Clearance Estimated 44 mL/min (50-200); Estimated Glomerular Filt Rate 68 ml/min (>60); GFR (African American) 82 ML/MIN (>60); Glucose 365 mg/dl (74-100); Potassium 3.9 mmoL/L (3.5-5.1); Sodium 132 mmol/L (136-145)
--- NOTE | 2021-02-07 21:23 | HMH.EDCP ---
ED Disposition Clinical Impression: Chronic atrial fibrillation ST elevation myocardial infarction (STEMI) Qualifiers: Involved coronary artery: unspecified coronary artery Qualified Code(s): I21.3 - ST elevation (STEMI) myocardial infarction of unspecified site Epileptic seizure Qualifiers: Epilepsy type: unspecified Intractability: not intractable Status epilepticus: without status epilepticus Qualified Code(s): G40.909 - Epilepsy, unspecified, not intractable, without status epilepticus Diabetes mellitus Qualifiers: Diabetes mellitus type: type 2 Diabetes mellitus long chain dyeing machine operator insulin use: unspecified long chain dyeing machine operator insulin use status Diabetes mellitus complication status: with other specified complication Qualified Code(s): E11.69 - Type 2 diabetes mellitus with other specified complication Disposition: Admitted As Inpatient Condition on Discharge: Serious Referrals: Avelino Anderson MD [Primary Care Provider] - - Critical Care Critical Care Time: No Attestation: On 02/07/21, the high probability of a clinically significant, sudden or life threatening deterioration of the following system(s) required my full and direct attention, intervention and personal management. The time I documented below is in addition to time spent performing reported procedures but includes the following listed in this critical care notation. Medical Decision Making - Medical Records Medical records reviewed: Yes: I reviewed the patient's medical records. - Paul Inquiry Pt receiving controlled substance: No Vital Signs: 02/07/21 21:00 Temperature 98.3 F Temperature Source Oral Pulse Rate [Right] 65 Respiratory Rate 16 Blood Pressure [Right Arm] 183/103 H Blood Pressure Mean [Right Arm] 129 Blood Pressure Source [Right Arm] Automatic Cuff Blood Pressure Position [Right Arm] Sitting 02 Sat by Pulse Oximetry 98 Oxygen Delivery Method Nasal Cannula Oxygen Flow Rate (LPM) 2 - Lab Data Lab results reviewed: Yes: I reviewed the patient's lab results. Lab Results 02/07/21 21:02: WBC 6.9, RBC 4.65, Hgb 15.0, Hct 44.7, MCV 96.1, MCH 32.2 H, MCHC 33.5, RDW 14.2, Plt Count 134 L, MPV 8.6, Neut % (Auto) 76.5, Lymph % (Auto) 15.9, [place] % (Auto) 4.9, Eos % (Auto) 1.7, Baso % (Auto) 0.8, Neut # (Auto) 5.3, Lymph # (Auto) 1.1, [place] # (Auto) 0.3, Eos # (Auto) 0.1, Baso # (Auto) 0.1 02/07/21 21:02: Sodium 132 L, Potassium 3.9, Chloride 98, Carbon Dioxide 30, Anion Gap 7.9, BUN 23 H, Creatinine 0.80, Estimated Creat Clear 44, Estimated GFR 68, Est GFR ( Amer) 82, Glucose 365 H, Calcium 9.6 Result diagrams: 02/07/21 21:02 02/07/21 21:02 Orders (Tests/Meds): ED MEDICATIONS Generic Name Dose Route Start Last Admin Trade Name Freq PRN Reason Stop Dose Admin Diphenhydramine HCl 50 mg 02/07/21 21:20 Diphenhydramine 50mg/Ml Vial IV 02/07/21 21:21 ONCE ONE Fentanyl Citrate 25 mcg 02/07/21 21:20 Fentanyl 100mcg/2ml Vial IV 02/08/21 21:20 Q3MINP PRN Moderate to Severe Pain Fentanyl Citrate 50 mcg 02/07/21 21:20 Fentanyl 100mcg/2ml Vial IV 02/08/21 21:20 Q3MINP PRN Moderate to Severe Pain Fentanyl Citrate 25 mcg 02/07/21 21:20 Fentanyl 250mcg/5ml Vial IV 02/08/21 21:20 Q3MINP PRN Moderate to Severe Pain Fentanyl Citrate 50 mcg 02/07/21 21:20 Fentanyl 250mcg/5ml Vial IV 02/08/21 21:20 Q3MINP PRN Moderate to Severe Pain Flumazenil 0.2 mg 02/07/21 21:20 Flumazenil 0.1mg/Ml 5ml Vial IV 02/07/21 23:00 NEEDED PRN Sedation Heparin Sodium (Porcine) 10,000 unit 02/07/21 21:20 Heparin 1,000 Units/Ml 10ml Vial (Animal Pathology Teacher) IV 02/08/21 01:20 NEEDED PRN Emergency Box Explosives Mixer Operator Heparin Sodium/Sodium Chloride 3,000 unit 02/07/21 21:20 Heparin 1,000 Units/500ml Ns (Animal Pathology Teacher) IV 02/07/21 21:21 ONCE ONE Sodium Chloride 1,000 mls @ 25 mls/hr 02/07/21 21:30 Sod Chlor 0.9% 1000ml Bag IV 02/08/21 21:20 .Q25H GILA
--- NOTE | 2021-02-07 21:25 | PC.NURSE ---
EKG sent to Dr. Wen @ 2056, and Dr. Wen paged immediatley. STMEI alert called and pt prepped for computer lab assistant. Pads placed on pt and medicated per Dr. Carr orders, 324mg of ASA given per EMS COMPUTER NUMERICAL CONTROL OPERATOR.
--- NOTE | 2021-02-07 21:28 | PC.NURSE ---
HudsonRN and Baljit, addresser taking patient to laborer powerhouse at this time
--- NOTE | 2021-02-07 21:28 | PC.NURSE ---
STEMI report sheet filled out and consent signed per son.
[2021-02-07 21:30] LABS: Troponin I 0.03 ng/ml (0.00-0.034)
[2021-02-07 21:50] LABS: Adenovirus,PCR Not Detected (NotDetected); Bordetella Pertussis Not Detected (NotDetected); Chlamydophila Pneumoniae, PCR Not Detected (NotDetected); Coronavirus 19, PCR Not Detected (NotDetected); Coronavirus 229E Not Detected (NotDetected); Coronavirus NL63 Not Detected (NotDetected); Coronavirus OC43 Not Detected (NotDetected); Coronovirus HKU1,PCR Not Detected (NotDetected); Human Metapneumovirus Not Detected (NotDetected); Influenza A, PCR Not Detected (NotDetected); Influenza AH1, 2009 Not Detected (NotDetected); Influenza AH1, PCR Not Detected (NotDetected); Influenza AH3,PCR Not Detected (NotDetected); Influenza B, PCR Not Detected (NotDetected); Mycoplasma Pneumoniae, PCR Not Detected (NotDetected); Parainfluenza 1, PCR Not Detected (NotDetected); Parainfluenza 2, PCR Not Detected (NotDetected); Parainfluenza 3, PCR Not Detected (NotDetected); Parainfluenza 4, PCR Not Detected (NotDetected); Respiratory Syncytial Virus Not Detected (NotDetected); Rhinovirus/Enterovirus Not Detected (NotDetected)
--- NOTE | 2021-02-07 22:57 | PC.NURSE ---
PT ARRIVED TO FLOOR VIA STRETCHER FROM INSPECTOR BARREL W/STAFF AT 2572
[2021-02-08] VITALS (18 sets, daily range): BP systolic 108–167; BP diastolic 56–94; PULSE 55–90; RESP 16–20; TEMP 36.2–36.7; O2SAT 92–100; BMI 22.4
--- NOTE | 2021-02-08 00:40 | PC.WOUNDNOTE ---
1/4CM X 1/4 CM. open area that appears like a puncture area. Skin around it is pink. No drainage. 1/4CM X 1/4 CM. open area that appears like a puncture area. Skin around it is pink. No drainage. Reddened area on coccyx. No drainage.
[2021-02-08 05:24] LABS: POC Glucose,Bedside 140 (70-110)
[2021-02-08 06:47] LABS: Basophils % 0.3 % (0.1-2.0); Eosinophils # 0.1 K/mm3 (0.0-0.4); Eosinophils % 0.9 % (0.1-12.0); Hematocrit 44.1 % (37.0-47.0); Lymphocytes # 1.3 K/mm3 (0.7-4.5); Lymphocytes % 14.5 % (10-50); Mean Corpuscular Hemoglobin 31.7 pg (27.0-31.2); Mean Corpuscular Volume 93.4 fl (81-99); Mean Platelet Volume 8.5 fl (7.4-10.4); Monocytes # 0.6 K/mm3 (0.1-1.0); Monocytes % 6.2 % (1.7-9.3); Neutrophils % 78.1 % (37.0-80.0); Platelet Count 147 K/mm3 (142-424); Red Blood Count 4.72 M/mm3 (4.20-5.40); Red Cell Distribution Width 14.3 % (11.5-17.5); White Blood Count 8.9 K/mm3 (4.8-10.8)
[2021-02-08 06:54] LABS: Alanine Aminotransferase 39 U/L (12-78); Albumin Level 3.2 g/dl (3.5-5.0); Albumin/Globulin Ratio 1.1 (1.1-1.8); Alkaline Phosphatase 111 U/L (38-126); Anion Gap 8.4 mEq/L (5-15); Aspartate Amino Transferase 271 U/L (14-36); Bilirubin,Total 0.9 mg/dl (0.2-1.3); Blood Urea Nitrogen 18 mg/dl (7-17); Carbon Dioxide 28 mmol/L (22.0-30.0); Chloride 102 mmol/L (98-107); Chol/HDL Ratio 3.4 (1-3.5); Cholesterol 180 mg/dl (140-200); Creatinine Clearance Estimated 39 mL/min (50-200); Estimated Glomerular Filt Rate 95 ml/min (>60); GFR (African American) 115 ML/MIN (>60); Glucose 119 mg/dl (74-100); HDL Cholesterol 53 mg/dl (40-60); Potassium 3.4 mmoL/L (3.5-5.1); Sodium 135 mmol/L (136-145); Total Protein,Serum 6.2 g/dl (6.3-8.2); Triglycerides 102 mg/dl (30-150); VLDL Cholesterol 20 mg/dL (0-40)
[2021-02-08 07:05] LABS: Direct LDL Cholesterol 98.47 mg/dL (100-129)
[2021-02-08 07:23] LABS: CATHL Activated Clotting Time 310 SEC (74-125)
[2021-02-08 07:25] LABS: CATHL Activated Clotting Time > 400 SEC (74-125)
--- NOTE | 2021-02-08 07:34 | P.CONPHA_ITS ---
[facility] Pharmacy VTE Monitoring - Patient Demographics Admission date: 02/07/21 Report Date: 02/08/21 Time: 07:34 Allergies/Adverse Reactions: Patient Allergies Penicillins [PENICILLINS] Allergy (Unknown, Verified 02/07/21 23:28) REDNESS/RASH Height: 1.63 m Weight: 59.421 kg Patient Problems: Current Active Problems Chronic atrial fibrillation (Chronic) Epileptic seizure (Acute) ST elevation myocardial infarction (STEMI) (Acute) Diabetes mellitus (Acute) - VTE Risk Labs: VTE Related Lab Results Hgb 15.0 g/dL (12.2-16.2) 02/08/21 05:37 Hct 44.1 % (37.0-47.0) 02/08/21 05:37 Plt Count 147 K/mm3 (142-424) 02/08/21 05:37 BUN 18 mg/dl (7-17) H 02/08/21 05:37 Creatinine 0.60 mg/dl (0.52-1.04) D 02/08/21 05:37 Estimated Creat Clear 39 mL/min (50-200) 02/08/21 05:37 VTE Score: 2 VTE Risk Level: Very Low Risk - Prophylaxis VTE Prophylaxis Ordered?: Yes Types of VTE Prophylaxis: TEDS Knee High Location of Applied Device: Bilateral Lower Extremeties
--- NOTE | 2021-02-08 07:41 | HMH.HP ---
*Admission Date: 02/07/21 *Chief complaint: STEMI *History of present illness: 85-year-old white female with significant dementia, overall frailty and recent fdc stay for frequent falls who was at home in her normal state of compromised health when she had some chest pain. Brought to the emergency department and EKG triggered a STEMI alert and she was taken to the Academic Manager. Several stents were placed. Please refer to the cardiology note for details. This morning patient is pleasant but has been incontinent of urine. Does not complain of chest pain or shortness of air. Her son who is her primary customer agent is not here this morning. [facility] History I have reviewed the patient's past medical history: Yes Medical History: Reports:: Arrhythmia (Afib.), Atrial Fibrillation, Congestive Heart Failure, Diabetes Mellitus Type 2, Hypertension Denies:: Cancer, Diabetes Mellitus Type 1, Internal Pacemaker, MRSA *Have you ever received a pneumonia vaccine?: Yes *Have you received a flu vaccine this season?: No Other Surgeries: No: Pacemaker Amputation: No - *Social History Smoking Status: Unknown if ever smoked Alcohol Intake: never *Occupational Status:: disabled Housing: fdc *Travel in the last 8 weeks: None Family Hx:: Unable to obtain Review of Systems - Review of Systems Review of systems:: unable to obtain - *Neurologic Denies headache(s), Denies seizure-like activity Meds Home Medications Medication Instructions Recorded Confirmed Type Apixaban [Eliquis] 5 mg PO BID 09/10/20 10/03/20 History levETIRAcetam [Keppra] 750 mg PO BID 09/10/20 10/03/20 History Furosemide [Furosemide 20mg Tab*] 20 mg PO DAILY 10/03/20 10/03/20 History Insulin Detemir [Levemir 100 25 unit SQ BID 10/03/20 10/03/20 History units/mL 10mL vial] Spironolactone 50 mg PO DAILY 10/03/20 10/03/20 History Allergies Allergy/AdvReac Type Severity Reaction Status Date / Time Penicillins [PENICILLINS] Allergy Unknown REDNESS/JENNIFER Verified 02/07/21 23:28 H Exam Vital signs and Labs for Last 24 Hours: Temp Pulse Resp BP Pulse Ox 98.1 F 60 16 134/74 92 L 02/08/21 05:40 02/08/21 06:00 02/08/21 05:40 02/08/21 06:00 02/08/21 06:00 Laboratory Results - last 24 hr 02/07/21 21:02: WBC 6.9, RBC 4.65, Hgb 15.0, Hct 44.7, MCV 96.1, MCH 32.2 H, MCHC 33.5, RDW 14.2, Plt Count 134 L, MPV 8.6, Neut % (Auto) 76.5, Lymph % (Auto) 15.9, [place] % (Auto) 4.9, Eos % (Auto) 1.7, Baso % (Auto) 0.8, Neut # (Auto) 5.3, Lymph # (Auto) 1.1, [place] # (Auto) 0.3, Eos # (Auto) 0.1, Baso # (Auto) 0.1 02/07/21 21:02: Sodium 132 L, Potassium 3.9, Chloride 98, Carbon Dioxide 30, Anion Gap 7.9, BUN 23 H, Creatinine 0.80, Estimated Creat Clear 44, Estimated GFR 68, Est GFR ( Amer) 82, Glucose 365 H, Calcium 9.6, Troponin I 0.03 02/07/21 21:10: Chlamy pneumoniae PCR Not detected, Adenovirus (PCR) Not detected, B. pertussis DNA (PCR) Not detected, Coronavirus OC43 (PCR) Not detected, Coronavirus HKU1 (PCR) Not detected, Coronavirus 229E (PCR) Not detected, SARS-CoV-2 (PCR) Not detected, Coronavirus NL63 (PCR) Not detected, Human Metapneumovir PCR Not detected, Influenza A (H1) PCR Not detected, Influ A (H1N1/09) PCR Not detected, Influenza A (H3) PCR Not detected, Influenza Type A (PCR) Not detected, Influenza Type B (PCR) Not detected, M. pneumoniae (PCR) Not detected, Parainfluenza 1 (PCR) Not detected, Parainfluenza 2 (PCR) Not detected, Parainfluenza 3 (PCR) Not detected, Parainfluenza 4 (PCR) Not detected, RSV (PCR) Not detected, Entero/Rhino (PCR) Not detected 02/07/21 21:42: Activated Clotting Time > 400 H* 02/07/21 22:13: Activated Clotting Time 310 H* D 02/08/21 04:54: POC Glucose 140 H 02/08/21 05:37: WBC 8.9 D, RBC 4.72, Hgb 15.0, Hct 44.1, MCV 93.4, MCH 31.7 H, MCHC 34.0, RDW 14.3, Plt Count 147, MPV 8.5, Neut % (Auto) 78.1, Lymph % (Auto) 14.5, [place] % (Auto) 6.2, Eos % (Auto) 0.9, Baso % (Auto) 0.3, Neut # (Auto) 7.0, Lymph # (Auto) 1.3, Mo
--- NOTE | 2021-02-08 08:00 | CA_ITS ---
APPROVED REPORT EXAM: Comprehensive 2D, Doppler, and color-flow Echocardiogram Area Secretary: Marlena Ku CRT Ht: 5 ft 4 in Wt: 150lbs BSA: 1.73 BP: 183/103 mmHg Indications: Diabetes, CAD, Hyperlipidemia, stemi, cath 02/07/21 ef 35%, 5 stents 2D Dimensions LVOT 2.00 cm (M/F) 1.5-2.5 LA Volume 106.60 mL LA Volume Index 61.60 mL/m2 (M/F) 16-34 M-Mode Dimensions RVDd 3.11 cm (0.9-2.6) LA Diam 5.27 cm (1.9-4.0) LVDd 5.89 cm (3.5-5.7) Ao Diam 4.17 cm (2.0-3.7) LVDs 4.79 cm (3.5-5.7) IVSd 1.71 cm (0.6-1.1) PWd 0.46 cm (0.6-1.1) EF (Teich) 38.00% FS 18.70% EDV (Teich) 172.50 mL TAPSE 1.65 (<1.7) ESV (Teich) 107.00 mL LV Diastology E Decel Time 567.00 (160-240 msec) LAT E' 3.90 (<10 cm/sec) LAT A' 4.70 cm/s E/LAT E' Ratio 42.00 (>14) Aortic Valve LVOT Max 89.00 (70-110 cm/s) LVOT VTI 15.35 cm AoV Peak Theo. 138.00 (50-130 cm/s) AI PHT 549.00 ms AO Peak GR. 7.70 mmHg AO Mean GR. 4.60 (<5 mmHg) AO VTI 23.97 (18-25 cm) SANCHO (VTI) 2.01 (2.5-4.5 cm2) Mitral Valve MV E Max Theo. 164.00 (40-130 cm/s) MV Decel. Time 567.00 (160-240 ms) MV PHT 166.00 ms Pulmonary Valve PV Peak Velocity 156.00 (50-150 cm/s) Tricuspid Valve TR P. Velocity 344.00 cm/s RAP Estimate 10.00 mmHg RVSP 57.40 mmHg Left Ventricle Left atrium is markedly enlarged, left ventricle is normal size, mild concentric left ventricular hypertrophy, severe reduced left ventricular systolic function, visually estimated ejection fraction 25 to 30%, there is marked hypokinesis involving mid to distal septum, anterior, anterior apical and apical wall. Diastolic parameters are inconclusive. Doppler evidence of low cardiac output state. Right Ventricle Right atrium and right ventricle are right atrium and right ventricle moderately enlarged with normal contractility. Aortic Valve Aortic valve is thickened and calcified, Doppler is not indicated for aortic stenosis, there is low cardiac output state, there is mild aortic insufficiency. Mitral Valve Mitral valve leaflets are calcified with severe restriction in the leaflet mobility, mean gradient across mitral valve is 9.5 mmHg, valve area is 1.3 cm??? by pressure half-time method, there is moderate mitral regurgitation, this represents moderate to severe mitral stenosis. Tricuspid Valve There is moderate tricuspid regurgitation noted, calculated right ventricular systolic pressure is 57 mmHg. Pulmonic Valve Pulmonic valve is poorly visualized. Great Vessels Aortic root is normal size. Pericardium No significant pericardial effusion noted. Conclusion 1. Markedly enlarged left atrium, normal left ventricular size, mild concentric left ventricular hypertrophy, visually estimated ejection fraction 25 to 30%, with multiple segmental wall motion abnormality, Doppler evidence of low cardiac output state. Diastolic parameters are inconclusive. 2. Thickened and calcified aortic valve without significant aortic stenosis, there is mild aortic insufficiency. 3. Moderately enlarged right ventricle with normal contractility. 4. Abnormal mitral valve as described above with calcific mitral stenosis and moderate to severe range, valve area is 1.3 cm???, there is moderate mitral regurgitation. 5. Moderate tricuspid regurgitation, calculated right ventricular systolic pressure is 57 mmHg, inferior vena cava is dilated without significant inspiratory collapse 6. No significant pericardial effusion noted. Electronical
--- NOTE | 2021-02-08 09:54 | HMH.OTEV ---
OT Inpatient Evaluation Rehab OT IP Evaluation Start: 02/08/21 07:45 Freq: ONCE Status: Complete Protocol: Document 02/08/21 09:42 AICHAMARCO A (Rec: 02/08/21 09:54 ELSIE [id number]) Rehab OT IP Assessment Subjective History *Admission Date: 02/07/21 *Chief complaint: STEMI *History of present illness: 85-year-old white female with significant dementia, overall frailty and recent longterm stay for frequent falls who was at home in her normal state of compromised health when she had some chest pain. Brought to the emergency department and EKG triggered a STEMI alert and she was taken to the Pit Inspector. Several stents were placed. Please refer to the cardiology note for details. This morning patient is pleasant but has been incontinent of urine. Does not complain of chest pain or shortness of air. Her son who is her primary bar supervisor is not here this morning. [facility] History I have reviewed the patient's past medical history: Yes Medical History: Reports:: Arrhythmia (Afib.), Atrial Fibrillation, Congestive Heart Failure, Diabetes Mellitus Type 2, Hypertension Subjective Patient is a poor historian re : PLOF at home. Per nursing, Patient lives at home with son who provides care for her. Where is my son? Patient became very agitated and emotional during OT evaluation re: concern for her son. Nursing consulted with Patient re: speaking to the son who was on his way to the hospital , however Patient continue to remain agitated and emotional and evaluation was kept
--- NOTE | 2021-02-08 10:54 | HMH.CNCARD ---
History of Present Illness Consult date: 02/08/21 Requesting physician: Juventino Rivas Consult reason: chest pain Chief complaint: chest pain History of present illness: This is an 85-year-old white female who presented to the emergency department with complaints of chest pain. The patient's chest pain started approximately 30 minutes prior to arrival. The patient is a very poor historian and most of her history is obtained from her previous medical records in the emergency department. The patient states that she was having pressure and sharp chest pain in her chest. It was a constant pain. It started while she was at rest. It was associated with nausea and shortness of breath. This description of her chest pain was mostly obtained from her emergency department visit. She is able to answer some of my questions but she mostly talks about a woman worker here at the hospital and her son not being here like he said he would. She currently denies any chest pain this morning. She denies any shortness of breath. She denies any fever, chills, nausea, vomiting, diarrhea, PND or orthopnea. She does complain of some edema in her bilateral lower extremities. The patient is very demented so her review of systems is not very accurate. She does not tell me her name, where she is or what year it is. She had an anterior STEMI in the emergency department and she was taken directly to the cardiac catheterization laboratory. She underwent stenting to the proximal and mid LAD 400% occlusion with 3 stents she also had stenting to the proximal and mid circumflex artery with 2 stents. She had severe persistent stenosis to the posterior lateral ventricular branch. Her estimated ejection fraction was 35%. The patient has been started on Brilinta and aspirin for dual antiplatelet therapy. [facility] History I have reviewed the patient's past medical history: Yes Medical History: Reports:: Arrhythmia (Afib.), Atherosclerotic Heart Disease, Atrial Fibrillation, Congestive Heart Failure, Coronary Artery Disease, Diabetes Mellitus Type 2, Hypertension Denies:: Cancer, Diabetes Mellitus Type 1, Internal Pacemaker, MRSA *Have you ever received a pneumonia vaccine?: Yes *Have you received a flu vaccine this season?: No Other Surgeries: No: Pacemaker Amputation: No - *Social History Smoking Status: Unknown if ever smoked Alcohol Intake: never *Occupational Status:: disabled Housing: shelter *Travel in the last 8 weeks: None Family Hx:: Unable to obtain Meds Home Medications Medication Instructions Recorded Confirmed Type Apixaban [Eliquis] 5 mg PO BID 09/10/20 02/08/21 History levETIRAcetam [Keppra] 750 mg PO BID 09/10/20 02/08/21 History Insulin Detemir [Levemir 100 25 unit SQ HS 10/03/20 02/08/21 History units/mL 10mL vial] Famotidine [Pepcid 20mg Tablet] 20 mg PO BIDP PRN 02/08/21 02/08/21 History Furosemide [Furosemide 40MG tAB*] 40 mg PO DAILY 02/08/21 02/08/21 History Losartan Potassium [Cozaar 50mg 50 mg PO DAILY 02/08/21 02/08/21 History Tablets] Allergies Allergy/AdvReac Type Severity Reaction Status Date / Time Penicillins [PENICILLINS] Allergy Unknown REDNESS/JENNIFER Verified 02/07/21 23:28 H Exam Vital signs and Labs for Last 24 Hours: Temp Pulse Resp BP Pulse Ox 97.9 F 64 19 145/66 H 100 02/08/21 08:00 02/08/21 08:00 02/08/21 08:00 02/08/21 08:00 02/08/21 08:00 Laboratory Results - last 24 hr 02/07/21 21:02: WBC 6.9, RBC 4.65, Hgb 15.0, Hct 44.7, MCV 96.1, MCH 32.2 H, MCHC 33.5, RDW 14.2, Plt Count 134 L, MPV 8.6, Neut % (Auto) 76.5, Lymph % (Auto) 15.9, [place] % (Auto) 4.9, Eos % (Auto) 1.7, Baso % (Auto) 0.8, Neut # (Auto) 5.3, Lymph # (Auto) 1.1, [place] # (Auto) 0.3, Eos # (Auto) 0.1, Baso # (Auto) 0.1 02/07/21 21:02: Sodium 132 L, Potassium 3.9, Chloride 98, Carbon Dioxide 30, Anion Gap 7.9, BUN 23 H, Creatinine 0.80, Estimated Creat Clear 44, Estimated GFR 68, Est GFR ( Amer) 82, Glucose 365 H, Escobar
--- NOTE | 2021-02-08 12:02 | HMH.PTEV ---
Physical Therapy Evaluation Rehab PT IP Evaluation Start: 02/08/21 07:45 Freq: ONCE Status: Active Protocol: Document 02/08/21 11:56 TORSTEN (Rec: 02/08/21 12:01 TORSTEN [id number]) Subjective/History History History 85-year-old white female with significant dementia, overall frailty and recent long-term stay for frequent falls who was at home in her normal state of compromised health when she had some chest pain. Brought to the emergency department and EKG triggered a STEMI alert and she was taken to the [facility]. Subjective Subjective Pt is very demented w/ intermittent bouts of uncooperation. Pt was alert to name only Rehab PT IP Eval Objective Appearance Patient Behavior Uncooperative Patient Orientation Name Difficulty following instructions moderate Speech Pattern Clear Ambulation Patient Able to Ambulate Yes Ambulation Observation IP General Gait Pattern Observation Shuffling Step Ambulation Distance (feet) 2 Ambulation Assistive Device None Ambulation Ability Contact Guard/Hand Hold Balance Ability to Arise Able, uses arms to help Sitting Balance Steady, safe Standing Balance Unsteady Dynamic Sitting Balance Ability Fair Dynamic Standing Balance Ability Poor Transfers Bed Transfer Ability Supervision/Stand by,Contact Guard/Hand Hold Chair Transfer Ability Supervision/Stand by,Contact Guard/Hand Hold Sit to Stand Bed Transfer Ability Supervision/Stand by,Contact Guard/Hand Hold Sit to Stand Chair Transfer Ability Supervision/Stand by,Contact Guard/Hand Hold Rehab PT IP prob,goals,plan Problems Date of Evaluation: 02/08/21 PT IP Problems Transfers,Gait,Self care, Safety Rehab Potential Rehab Potential Fair Equipment Needs Assistive Devices Rolling / Wheeled Walker Plan PT Intervention Plan Bed Mobility,Transfers,Gait PT Plan Frequency BID Duration LOS Discharge Goals Bed Transfer Ability Supervision/Stand by,Contact Guard/Hand Hold Sit to Stand Chair Transfer Ability Supervision/Stand by,Contact
[2021-02-08 12:05] LABS: POC Glucose,Bedside 140 (70-110)
--- NOTE | 2021-02-08 13:14 | HMH.PHAINT ---
MEDICATION RECONCILIATION COMPLETED ON PATIENT USING EXTERNAL FILL HISTORY FROM PHARMACY, LIST FROM PCP OFFICE, AND PATIENT INTERVIEW. PATIENT IS NOT SURE WHAT DOSE OF LEVEMIR SHE TAKES AND BOTH THE FILL HISTORY FROM THE PHARMACY AND THE LIST FROM PCP OFFICE STATE TO GIVE DIRECTED. -JER NICOLAS, PHARMD
[2021-02-08 16:48] LABS: POC Glucose,Bedside 138 (70-110)
[2021-02-08 20:49] LABS: POC Glucose,Bedside 159 (70-110)
[2021-02-09] VITALS (21 sets, daily range): BP systolic 70–145; BP diastolic 21–85; PULSE 74–100; RESP 12–25; TEMP 36.3–36.8; O2SAT 91–97; BMI 22.4; BMI 22.1
--- NOTE | 2021-02-09 | ECG_ITS ---
APPROVED REPORT Exam: Resting ECG HR:81 bpm ECG Measurements Heart Rate 81 AXES QRSd 128 QRS 162 QT 422 T 184 QTc 490 Conclusion Undetermined rhythm Right axis deviation Nonspecific intraventricular block Cannot rule out Anterior infarct, age undetermined T wave abnormality, consider lateral ischemia Abnormal ECG Electronically signed by : Avelino Anderson, 02/10/2021 07:21:01
--- NOTE | 2021-02-09 00:47 | PC.NURSE ---
patient sat up on side of the bed and began vomiting. zofran given. patient has denied any symptoms of pain, nausea, vomiting, diarrhea or soa throughout shift. patient has been been anxious, aggitated and unwilling to interact productively with staff. when staff asks what is wrong when patient is moaning patient responds angrily i wish you'd shut up .
--- NOTE | 2021-02-09 06:12 | PC.NURSE ---
shift summary patient has rested very little tonight. has moaned on and off throughout shift but when questioned about the cause patient tells staff hush, shut up or go sit down. patient has vomited bile green emesis but questioned if she feels better this am patient says yes . cardiac cath lab technologist has shown afib with rate 70s-90s. remains incontinent of urine
[2021-02-09 06:27] LABS: Basophils % 0.3 % (0.1-2.0); Eosinophils % 0.1 % (0.1-12.0); Hemoglobin 17.6 g/dL (12.2-16.2); Lymphocytes # 1.1 K/mm3 (0.7-4.5); Lymphocytes % 7.4 % (10-50); Mean Corpuscular HGB Conc 33.8 g/dL (31.8-35.4); Mean Corpuscular Hemoglobin 32.1 pg (27.0-31.2); Mean Platelet Volume 8.2 fl (7.4-10.4); Monocytes # 0.8 K/mm3 (0.1-1.0); Monocytes % 5.5 % (1.7-9.3); Neutrophils # 12.3 K/mm3 (1.8-7.8); Neutrophils % 86.7 % (37.0-80.0); Platelet Count 193 K/mm3 (142-424); Red Blood Count 5.47 M/mm3 (4.20-5.40); Red Cell Distribution Width 14.5 % (11.5-17.5); White Blood Count 14.2 K/mm3 (4.8-10.8)
[2021-02-09 06:35] LABS: MANUAL DIFFERENTIAL MANUAL DIFFERENTIAL (MANUAL DIFF)
[2021-02-09 06:36] LABS: Alanine Aminotransferase 35 U/L (12-78); Albumin Level 3.3 g/dl (3.5-5.0); Albumin/Globulin Ratio 1.1 (1.1-1.8); Alkaline Phosphatase 138 U/L (38-126); Anion Gap 10.9 mEq/L (5-15); Aspartate Amino Transferase 139 U/L (14-36); Bilirubin,Total 1.5 mg/dl (0.2-1.3); Blood Urea Nitrogen 20 mg/dl (7-17); Calcium 9.7 mg/dl (8.4-10.2); Carbon Dioxide 29 mmol/L (22.0-30.0); Chloride 94 mmol/L (98-107); Creatinine Clearance Estimated 28 mL/min (50-200); Estimated Glomerular Filt Rate 36 ml/min (>60); GFR (African American) 43 ML/MIN (>60); Globulin 2.9 g/dL (1.3-3.2); Glucose 297 mg/dl (74-100); Potassium 3.9 mmoL/L (3.5-5.1); Sodium 130 mmol/L (136-145); Total Protein,Serum 6.2 g/dl (6.3-8.2)
--- NOTE | 2021-02-09 07:33 | HMH.ACPN2 ---
Internal Medicine - PN: Subj *Date: 02/09/21 *Time: 19:34 Interval history: Ms. Hahn had several episodes of emesis overnight. Has had 1 bowel movement in the past 24 hours. Remains afebrile this morning. Is pleasant but disoriented to person place and time on interview this morning. No complaints of abdominal pain, nausea, chest pain, shortness of breath. Afebrile. Reviewed labs this morning. Significant changes with leukocytosis, elevation in creatinine, and hemoconcentration. Poor p.o. intake due to emesis. No IV fluids overnight. Exam Vital signs and Labs for Last 24 Hours: Temp Pulse Resp BP Pulse Ox 97.8 F 92 H 18 128/62 95 02/09/21 04:30 02/09/21 04:30 02/09/21 04:30 02/09/21 04:30 02/09/21 04:30 Laboratory Results - last 24 hr 02/08/21 11:31: POC Glucose 140 H 02/08/21 16:40: POC Glucose 138 H 02/08/21 20:31: POC Glucose 159 H 02/09/21 05:44: WBC 14.2 H D, RBC 5.47 H, Hgb 17.6 H, Hct 52.0 H, MCV 95.0, MCH 32.1 H, MCHC 33.8, RDW 14.5, Plt Count 193 D, MPV 8.2, Neut % (Auto) 86.7 H, Lymph % (Auto) 7.4 L, Pettis % (Auto) 5.5, Eos % (Auto) 0.1, Baso % (Auto) 0.3, Neut # (Auto) 12.3 H, Lymph # (Auto) 1.1, Pettis # (Auto) 0.8, Eos # (Auto) 0.0, Baso # (Auto) 0.0 02/09/21 05:44: Sodium 130 L, Potassium 3.9, Chloride 94 L, Carbon Dioxide 29, Anion Gap 10.9, BUN 20 H, Creatinine 1.40 H D, Estimated Creat Clear 28, Estimated GFR 36 L, Est GFR ( Amer) 43 L D, Glucose 297 H, Calcium 9.7, Total Bilirubin 1.5 H, AST 139 H D, ALT 35, Alkaline Phosphatase 138 H, Total Protein 6.2 L, Albumin 3.3 L, Globulin 2.9, Albumin/Globulin Ratio 1.1 I & O for Last 24 hours: Intake & Output 02/06/21 02/07/21 02/08/21 02/09/21 23:59 23:59 23:59 23:59 Intake Total 1283 / 1283 Balance 1283 / 1283 Weight 59.619 kg 59.421 kg 59.421 kg Narrative: - Constitutional no acute distress, thin, chronically ill appearing, Significant dementia, pleasant and able to respond to some commands but unable to give any kind of history or symptom management. - *Routine HEENT Exam Head: Present: normocephalic Eye: Present: EOMI, PERRL ENT: Present: mucous membranes moist - *Routine Neck Exam Present: supple. Absent: lymphadenopathy - *Routine Respiratory Exam Present: CTA bilaterally - *Routine Cardiovascular Exam Present: RRR - *Routine Abdominal Exam Present: soft, normoactive bowel sounds. Absent: tenderness - *Routine Rectal Exam Rectal:: deferred - *Routine Genitalia Exam Genitalia:: deferred - *Routine Extremities Exam Absent: cyanosis, clubbing, edema - *Routine Skin Exam Present: warm. Absent: rash - *Routine Neurological Exam Present: alert, altered mental status Assessment and Plan (1) ST elevation myocardial infarction (STEMI) Status: Acute Qualifiers: Involved coronary artery: unspecified coronary artery Qualified Code(s): I21.3 - ST elevation (STEMI) myocardial infarction of unspecified site Category: Medical Code(s): I21.3 - ST elevation (STEMI) myocardial infarction of unspecified site (2) Senile dementia Status: Acute Category: Medical Code(s): F03.90 - Unspecified dementia without behavioral disturbance (3) Falls frequently Status: Acute Category: Medical Code(s): R29.6 - Repeated falls (4) Chronic atrial fibrillation Status: Chronic Category: Medical Code(s): I48.20 - Chronic atrial fibrillation, unspecified (5) Hypertension Status: Chronic Category: Medical Code(s): I10 - Essential (primary) hypertension (6) Coronary artery disease Status: Acute Category: Medical Code(s): I25.10 - Atherosclerotic heart disease of [place] coronary artery without angina pectoris (7) LV dysfunction Status: Acute Category: Medical Code(s): I51.9 - Heart disease, unspecified (8) Cardiomyopathy Status: Acute Qualifiers: Cardiomyopathy type: ischemic Qualified Code(s): I25.5 - Ischemic cardiomyopathy Category: Medica
--- NOTE | 2021-02-09 10:38 | SW/DCPLANNER ---
Addendum entered by Beryl Vallecillo 02/09/21 12:57: Natanael has called back stating that his goal is for patient to return home with home health services. Natanael was informed about patients decline since yesterday. CM will continue to follow up with patient/family regarding discharge plans. Discharge date is unknown at this time. Original Note: I attempted to contact patients son (Natanael) regarding discharge plans for this patient. Patient currently resides at home with son. VM has been left with Natanael to return my phone call. Discharge date is unknown for this patient.
[2021-02-09 10:49] LABS: Lymphocytes % 7 % (10-50); Monocytes % 4 % (2-9); Neutrophils % 87 % (42-76); Platelet Estimate Normal; RBC Morphology Normal; Total Cells Counted 100
--- NOTE | 2021-02-09 11:13 | DIET.NUTRFU ---
Addendum entered by Raisa Shields 02/14/21 13:41: Pt has continued with minimal intakes rt behavioral disturbances, she was able to eat about 25% of past 3 meals, she had refused most nourishment for 3d prior. Weight is up 8#. She has not had a recorded BM t/o stay- 7d. Hospice consulted noted, continuing to monitor and provide MNT as appropriate. Addendum entered by Raisa Shields 02/12/21 15:04: Pt has had ongoing severe emesis and continues with AMS. She has refused most nourishment t/o stay. Family visited today and was able to get her to drink most of a glucerna. Continued efforts encouragement/cueing appreciated, please prioritize supplements and protein foods. Please continue to offer supplements/snacks t/o the day. Original Note: Pt with severe protein calorie malnutrition rt severe dementia with loss 23% BW past 5 mo. Unable to effectively communicate with pt dt severe dementia. In depth written diet education for malnutrition rt dementia given and will f/u with pt's son. Soft diet with BID supplements ordered. Significant behavioral disturbances present, has refused past 2 meals, please assist with feeding/encourage and cue to best of ability. Pt may have any additional replacement meals/snacks/supplements desired by request/nursing offer.
--- NOTE | 2021-02-09 11:16 | HMH.PNCARD ---
Subjective Date: 02/09/21 Time: 11:00 Principal diagnosis: STEMI Interval history: This is an 85-year-old female who underwent left heart catheterization yesterday due to anterior STEMI. The patient is a very poor historian due to her dementia. She currently denies any chest pain this morning. She denies any shortness of breath. She denies any fever or chills. Pt did have episode of vomiting last evening. She does complain of some edema in her bilateral lower extremities. Left heart catheterization revealed successful stenting to the proximal and mid LAD with critical 100% occlusion which was reduced to 0% with 3 drug-eluting stents, successful stenting of the circumflex artery with 2 drug-eluting stents placed. Patient does have severe and persistent stenosis of the circumflex artery and the posterior lateral ventricular branch. Patient does have elevated LVEDP. Patient was prescribed Brilinta and aspirin for her CAD and postop stenting. Patient was also started on Entresto due to reduced ejection fraction of 35% and ischemic cardiomyopathy. Patient is not a candidate for LifeVest at this time due to her mental status. Echocardiogram was performed which revealed her EF was 25 to 30% with multiple segmental wall motion abnormality, evidence of low cardiac output state. Patient does have an abnormal mitral valve and the possible moderate to severe range of regurgitation. Unlikely patient was a candidate for valve surgery due to her mental status. Supportive care is recommended for this patient especially for the 48 hours after her STEMI. Patient is currently on Eliquis twice daily due to history of atrial fibrillation. A.m. labs revealed elevated WBC. This will be deferred to PCP. Cath site noted with dressing intact dry with no redness. LHC: IMPRESSION Acute anterior ST elevation myocardial infarction Successful percutaneous revascularization of the proximal and mid LAD critical 100% occlusion reduced to 0% with 3 contiguous drug-eluting stents Severe stenosis in a proximal codominant circumflex artery Successful percutaneous revascularization of the proximal and mid codominant circumflex artery severe to critical disease reduced to 0% with 2 contiguous drug-eluting stents Persistent severe stenosis in a posterior lateral ventricular branch Left ventricular dysfunction with regional wall motion abnormality Elevated LVEDP PLAN 1. Brilinta 90 twice daily plus aspirin 81 mg daily 2. Start beta-blockers once hemodynamically stable 3. Formal echocardiogram should be obtained to better evaluate ejection fraction 4. TRISHA inhibitors or Entresto once hemodynamically stable 5. LDL less than 55 6. Cardiac rehabilitation 7. If ejection fraction is 35% or less patient should be better evaluated to determine if she is a candidate for a LifeVest. Although this is not a definitive answer, based on her current mental condition in the [facility], it appears as though she probably would not be a favorable candidate for a LifeVest. This however may not be the case should her mental status improve prior to discharge. 8. Supportive care with monitoring on telemetry for at least the next 48 hours Echo:Conclusion 1. Markedly enlarged left atrium, normal left ventricular size, mild concentric left ventricular hypertrophy, visually estimated ejection fraction 25 to 30%, with multiple segmental wall motion abnormality, Doppler evidence of low cardiac output state. Diastolic parameters are inconclusive. 2. Thickened and calcified aortic valve without significant aortic stenosis, there is mild aortic insufficiency. 3. Moderately enlarged right ventricle with normal contractility. 4. Abnormal mitral valve as described above with calcific mitral stenosis and moderate to severe range, valve area is 1.3 cm???, there is moderate mitral regurgitation. 5. Moderate tricuspid regurgitation, calculated right ventricular systolic pressure
[2021-02-09 12:28] LABS: POC Glucose,Bedside 201 (70-110)
[2021-02-09 13:01] LABS: Microscopic, Urine URINE MICROSCOPIC (MICROSCOPIC)
[2021-02-09 13:30] LABS: Appearance,Urine CLEAR (Clear); Blood, Urine 2+ (Negative); Color,Urine YELLOW (Yellow); Glucose,Urine (UA) Negative (Negative); Ketones,Urine TRACE (Negative); Leukocyte Esterase,Urine Negative (Negative); Nitrate,Urine Negative (Negative); Protein,Urine 3+ (Negative); Specific Gravity, Urine >= 1.030 (1.005-1.030)
[2021-02-09 14:43] LABS: Bilirubin,Urine 2+ (Negative)
[2021-02-09 14:44] LABS: Calcium Oxalate Crystals,Urine 1+ /lpf
--- NOTE | 2021-02-09 15:44 | PC.NURSE ---
Manual BP 70/44. Bilateral fingers are cold and mottled. When assessing her, she hollars at staff. Dr. Elizabeth notified.
--- NOTE | 2021-02-09 16:14 | ECG_ITS ---
APPROVED REPORT Exam: Resting ECG HR:78 bpm ECG Measurements Heart Rate 78 AXES QRSd 122 QRS -79 QT 486 T 174 QTc 554 Conclusion Atrial fibrillation Left axis deviation Anterolateral infarct, age undetermined T wave abnormality, consider inferior ischemia or digitalis effect Abnormal ECG Electronically signed by : Avelino Anderson, 02/10/2021 07:21:10
--- NOTE | 2021-02-09 16:18 | PC.NURSE ---
Dr. Elizabeth has ordered the following: EKG STAT, Troponins STAT, Levo gtt NOW, and Epi gtt on standby. He has also ordered therapeutic Lovenox. Pharmacist (Park Guardado) notified.
--- NOTE | 2021-02-09 16:30 | PC.NURSE ---
1615: started Levo gtt @ 15mcg/min 1630: BP 83/44 1640: BP 110/44. Levo gtt decreased to 10mcg/min 1645: BP 132/55. Levo gtt decreased to 5mcg/min Spoke to Dr. Elizabeth, who wishes to consult with Dr. Wen. He will make the call to Dr. Wen. STAT EKG read by Dr. Wayne in ED @ 1630.
--- NOTE | 2021-02-09 17:08 | PC.NURSE ---
Notified Dr. Elizabeth and Dr. Wen that troponin is 42.30.
--- NOTE | 2021-02-09 17:15 | PC.NURSE ---
BP 79/50. Levo gtt increased to 10mcg/min
--- NOTE | 2021-02-09 17:29 | PC.NURSE ---
spoke to Dr. Elizabeth. No new orders at this time.
[2021-02-09 18:25] LABS: POC Glucose,Bedside 255 (70-110)
--- NOTE | 2021-02-09 18:37 | ECG_ITS ---
APPROVED REPORT Exam: Resting ECG HR:84 bpm ECG Measurements Heart Rate 84 AXES QRSd 124 QRS 195 QT 386 T 139 QTc 456 Conclusion Atrial fibrillation Right superior axis deviation Anterior infarct, age undetermined T wave abnormality, consider lateral ischemia or digitalis effect Abnormal ECG Electronically signed by : Avelino Anderson, 02/10/2021 07:20:51
--- NOTE | 2021-02-09 19:32 | PC.NURSE ---
pt has vomited about 10 times today. She has been agitated and restless. NG tube not an option at this time r/t mental status. Bed alarm remains on. She is confused. Does not know where she is or what is going on. Plavix has been ordered rectally per Dr. Elizabeth. Attempted to have GOC conversation with son today but son states that it's not her time to go and wishes to keep pt a FULL CODE. Reviewed POC with him. He was @ BS for aprox 1hr.
--- NOTE | 2021-02-09 20:10 | PC.NURSE ---
received call from dr. redd for patient update. informed of levophed drip dose, current blood pressure, intractable vomiting. no new orders received
[2021-02-09 20:58] LABS: POC Glucose,Bedside 289 (70-110)
--- NOTE | 2021-02-09 22:25 | PC.NURSE ---
patient had one episode of vomiting at beginning of shift treated with zofran. patient has rested well since zofran given. having episodes of apnea, o2 sats dropped to 60s. o2 placed at 2l nc.
[2021-02-10] VITALS (38 sets, daily range): BP systolic 85–143; BP diastolic 42–90; PULSE 65–91; RESP 14–26; TEMP 36.3–36.8; O2SAT 92–100; BMI 21.6
--- NOTE | 2021-02-10 01:08 | PC.NURSE ---
0030 patient began vomiting again, unable to give zofran again until 0. dr. molina paged and notified of vomiting and next due time for zofran. new orders received and carried out.
--- NOTE | 2021-02-10 01:16 | PC.NURSE ---
patient now resting with eyes closed
[2021-02-10 05:24] LABS: Basophils % 0.2 % (0.1-2.0); Eosinophils % 0.1 % (0.1-12.0); Hematocrit 52.2 % (37.0-47.0); Hemoglobin 17.3 g/dL (12.2-16.2); Lymphocytes # 1.4 K/mm3 (0.7-4.5); Lymphocytes % 8.7 % (10-50); Mean Corpuscular HGB Conc 33.2 g/dL (31.8-35.4); Mean Corpuscular Hemoglobin 31.9 pg (27.0-31.2); Mean Corpuscular Volume 95.9 fl (81-99); Mean Platelet Volume 8.6 fl (7.4-10.4); Monocytes % 6.1 % (1.7-9.3); Neutrophils # 14.1 K/mm3 (1.8-7.8); Neutrophils % 84.9 % (37.0-80.0); Platelet Count 210 K/mm3 (142-424); Red Blood Count 5.45 M/mm3 (4.20-5.40); Red Cell Distribution Width 14.5 % (11.5-17.5); White Blood Count 16.6 K/mm3 (4.8-10.8)
[2021-02-10 05:27] LABS: Alanine Aminotransferase 31 U/L (12-78); Albumin Level 3.3 g/dl (3.5-5.0); Albumin/Globulin Ratio 1.1 (1.1-1.8); Alkaline Phosphatase 123 U/L (38-126); Anion Gap 12.8 mEq/L (5-15); Aspartate Amino Transferase 83 U/L (14-36); Blood Urea Nitrogen 34 mg/dl (7-17); Calcium 9.4 mg/dl (8.4-10.2); Carbon Dioxide 32 mmol/L (22.0-30.0); Chloride 94 mmol/L (98-107); Estimated Glomerular Filt Rate 17 ml/min (>60); GFR (African American) 21 ML/MIN (>60); Globulin 2.9 g/dL (1.3-3.2); Glucose 299 mg/dl (74-100); Magnesium 1.8 mg/dl (1.6-2.3); Potassium 3.8 mmoL/L (3.5-5.1); Sodium 135 mmol/L (136-145); Total Protein,Serum 6.2 g/dl (6.3-8.2)
--- NOTE | 2021-02-10 06:08 | PC.NURSE ---
patient has had no further episodes of vomiting after receiving pepcid, reglan and phenergan. patient has been resting heavily requiring increase in levophed drip. current rate is 12 mcq/min. at the beginning of the shift patient required o2 for short periods of apnea but quickly removed o2. sats will drop to 82% on room air but does not maintain longer than a few minutes.
[2021-02-10 06:10] LABS: POC Glucose,Bedside 287 (70-110)
[2021-02-10 06:14] LABS: MANUAL DIFFERENTIAL MANUAL DIFFERENTIAL (MANUAL DIFF)
[2021-02-10 06:25] LABS: Creatinine Clearance Estimated 14 mL/min (50-200)
--- NOTE | 2021-02-10 07:57 | PC.NURSE ---
Levophed increased to 14 mcg/min @ 0730
[2021-02-10 08:18] LABS: Lymphocytes % 10 % (10-50); Monocytes % 4 % (2-9); Neutrophils % 86 % (42-76); Platelet Estimate Normal; RBC Morphology Normal; Total Cells Counted 100
--- NOTE | 2021-02-10 09:00 | PC.NURSE ---
Levo titrated to 12 mcg/min @ this time
--- NOTE | 2021-02-10 11:03 | HMH.ACPN2 ---
Internal Medicine - PN: Subj *Date: 02/10/21 *Time: 11:03 Interval history: Ms. Hahn has unfortunately continued to have some clinical decline overnight. Continue to require increasing dosage of Levophed to keep up blood pressure. Tolerating maintenance rate IV fluids. Reviewed labs this morning showing worsening acute kidney injury. Patient continues to have some intermittent nausea that was treated overnight with Phenergan. Tolerated oral meds today. No family at bedside on rounds. Remained stable on room air and afebrile. White cell count increased this morning, urine culture positive for UTI, antibiotics begun overnight. Exam Vital signs and Labs for Last 24 Hours: Temp Pulse Resp BP Pulse Ox 98 F 77 19 98/50 L 98 02/10/21 00:00 02/10/21 08:00 02/10/21 08:00 02/10/21 08:00 02/10/21 08:00 Laboratory Results - last 24 hr 02/09/21 10:55: Urine Color Yellow, Urine Appearance Clear, Urine pH 5.0, Ur Specific [place] >= 1.030, Urine Protein 3+, Urine Glucose (UA) Negative, Urine Ketones Trace, Urine Blood 2+, Urine Nitrate Negative, Urine Bilirubin 2+ A, Urine Urobilinogen 1.0, Ur Leukocyte Esterase Negative, Urine RBC 3-5, Urine WBC None, Ur Squamous Epith Cells 5-10, Ur Transition Epith Cell 5-10, Calcium Oxalate Crystal 1+, Urine Bacteria None 02/09/21 12:20: POC Glucose 201 H 02/09/21 16:26: Troponin I 42.30 H 02/09/21 16:55: POC Glucose 255 H 02/09/21 20:46: POC Glucose 289 H 02/10/21 05:07: WBC 16.6 H, RBC 5.45 H, Hgb 17.3 H, Hct 52.2 H, MCV 95.9, MCH 31.9 H, MCHC 33.2, RDW 14.5, Plt Count 210, MPV 8.6, Neut % (Auto) 84.9 H, Lymph % (Auto) 8.7 L, [place] % (Auto) 6.1, Eos % (Auto) 0.1, Baso % (Auto) 0.2, Neut # (Auto) 14.1 H, Lymph # (Auto) 1.4, [place] # (Auto) 1.0, Eos # (Auto) 0.0, Baso # (Auto) 0.0, Total Counted 100, Neutrophils % (Manual) 86 H, Lymphocytes % (Manual) 10, Monocytes % (Manual) 4, Platelet Estimate Normal, RBC Morphology Normal 02/10/21 05:07: Sodium 135 L, Potassium 3.8, Chloride 94 L, Carbon Dioxide 32 H, Anion Gap 12.8, BUN 34 H D, Creatinine 2.60 H D, Estimated Creat Clear 14, Estimated GFR 17 L*, Est GFR ( Amer) 21 L D, Glucose 299 H, Calcium 9.4, Magnesium 1.8, Total Bilirubin 1.0, AST 83 H D, ALT 31, Alkaline Phosphatase 123, Total Protein 6.2 L, Albumin 3.3 L, Globulin 2.9, Albumin/Globulin Ratio 1.1 02/10/21 05:54: POC Glucose 287 H I & O for Last 24 hours: Intake & Output 02/07/21 02/08/21 02/09/21 02/10/21 23:59 23:59 23:59 23:59 Intake Total 1283 / 1283 1367.287 / 7317.235 4657.333 / 1287.333 Balance 1283 / 1283 1367.287 / 8133.078 0161.333 / 1287.333 Weight 59.619 kg 59.421 kg 59 kg 57.351 kg Narrative: - Constitutional Mild distress, thin, chronically ill appearing, Significant dementia, wakes briefly to painful stimuli and loud verbal commands but quickly dozes off. Disoriented to person place and time. Unable to follow commands - *Routine HEENT Exam Head: Present: normocephalic Eye: Present: EOMI, PERRL ENT: Present: mucous membranes moist - *Routine Neck Exam Present: supple. Absent: lymphadenopathy - *Routine Respiratory Exam Present: CTA bilaterally, faint crackles in posterior lung bases, no significant respiratory distress - *Routine Cardiovascular Exam Present: RRR - *Routine Abdominal Exam Present: soft, normoactive bowel sounds. Absent: tenderness - *Routine Rectal Exam Rectal:: deferred - *Routine Genitalia Exam Genitalia:: deferred - *Routine Extremities Exam Absent: cyanosis, clubbing, trace lower extremity edema - *Routine Skin Exam Present: warm. Absent: rash - *Routine Neurological Exam Present: alert, altered mental status (see general exam above) Assessment and Plan (1) ST elevation myocardial infarction (STEMI) Status: Acute Qualifiers: Involved coronary artery: unspecified coronary artery Qualified Code(s): I21.3 - ST elevation (STEMI) myocardial infarction of unspecified site Category: Medical Code(s): I2
[2021-02-10 11:39] LABS: POC Glucose,Bedside 226 (70-110)
--- NOTE | 2021-02-10 15:49 | PC.NURSE ---
1512 - Spoke w/ Dr. Elizabeth via phone about pt. States that he had spoke w/ pt's son and had updated him on current plan of care. Pt's son had stated he had made decision to make pt a DNR @ this time. 1515 - Attempted to contact son @ this time to address code status and verify over phone w/ second nurse, call went straight to voicemail @ this time, left call back #. 1550 - Attempted to contact son again, call went to straight to voicemail.
[2021-02-10 17:59] LABS: POC Glucose,Bedside 279 (70-110)
--- NOTE | 2021-02-10 18:24 | ECG_ITS ---
APPROVED REPORT Exam: Resting ECG HR:79 bpm ECG Measurements Heart Rate 79 AXES QRSd 144 QRS -53 QT 464 T 106 QTc 532 Conclusion Undetermined rhythm Left axis deviation LBBB Abnormal ECG Electronically signed by : Avelino Anderson, 02/12/2021 07:13:49
[2021-02-10 18:58] LABS: Chloride 92 mmol/L (98-107); Sodium 132 mmol/L (136-145)
[2021-02-10 18:59] LABS: Potassium 3.8 mmoL/L (3.5-5.1)
[2021-02-10 19:01] LABS: Blood Urea Nitrogen 44 mg/dl (7-17); Creatinine Clearance Estimated 13 mL/min (50-200); Estimated Glomerular Filt Rate 15 ml/min (>60); GFR (African American) 19 ML/MIN (>60)
[2021-02-10 19:02] LABS: Anion Gap 11.8 mEq/L (5-15); Calcium 8.9 mg/dl (8.4-10.2); Carbon Dioxide 32 mmol/L (22.0-30.0); Glucose 251 mg/dl (74-100)
--- NOTE | 2021-02-10 19:18 | PC.NURSE ---
See provider notifications Pt remains on room air. No s/s of resp distress. Hr regular. Levo gtt currently 6 mcg/min. Pt had not voided since 0700 this AM, Dr. Rivas ([facility]) contacted @ 1600, orders received for wilkinson cath and for BMP to be drawn. Wilkinson cath inserted using sterile technique, only about 50 cc of urine out when wilkinson inserted, Dr. Rivas aware of this as well w/ no new orders. Son came to visit around 1730 this afternoon, code status addressed w/ son @ this time who states that he still needs to make a decision w/ his sister but that he would have one in 24 hours. RN made son aware that until then pt would be a full code and all measures will be taken if pt was to code, son verbalized understanding. 1615 - Pt c/o chest pain to son who came in hallway to get nurse. PT stated that she had it last night as well but had not told any of the staff. Describes pain as burning in the center of her chest and brings tears to her eyes . Dr. Wen notified, states he does not wish for EKG for troponins. Orders received for 2 mg Morphine [id number] for pain, RB+V. Morphine admin per NOV. PT currently resting comfortably. Report given Ilana Garay RN
--- NOTE | 2021-02-10 20:32 | PC.NURSE ---
paged dr. molina notified of urine output of 10 ml since placement of catheter, vs discussed and code status. no new orders received
[2021-02-10 20:51] LABS: POC Glucose,Bedside 202 (70-110)
[2021-02-11] VITALS (15 sets, daily range): BP systolic 95–130; BP diastolic 53–75; PULSE 60–90; RESP 14–20; TEMP 36.5–36.8; O2SAT 90–100; BMI 22.2
--- NOTE | 2021-02-11 08:26 | HMH.ACPN2 ---
Internal Medicine - PN: Subj *Date: 02/11/21 *Time: 10:21 Interval history: Ms. Sharma has continued to have nausea overnight. Continues to require Levophed and IV fluids due to poor p.o. intake. Had some chest discomfort overnight for which morphine was initiated. Somewhat more alert today with orientation to person and place but disoriented to time and situation. Son at bedside, updated of plan and current status. He overall feels she is doing significantly better, discussed that clinically I have concern that that is not the case. She denies chest pain or shortness of breath on exam this morning. Remains quite fatigued. Exam Vital signs and Labs for Last 24 Hours: Temp Pulse Resp BP Pulse Ox 97.7 F 74 16 102/55 L 93 L 02/11/21 04:00 02/11/21 06:00 02/11/21 06:00 02/11/21 06:00 02/11/21 06:00 Laboratory Results - last 24 hr 02/10/21 11:29: POC Glucose 226 H 02/10/21 17:52: POC Glucose 279 H 02/10/21 18:46: Sodium 132 L, Potassium 3.8, Chloride 92 L, Carbon Dioxide 32 H, Anion Gap 11.8, BUN 44 H D, Creatinine 2.90 H, Estimated Creat Clear 13, Estimated GFR 15 L*, Est GFR ( Amer) 19 L*, Glucose 251 H, Calcium 8.9 02/10/21 20:41: POC Glucose 202 H I & O for Last 24 hours: Intake & Output 02/08/21 02/09/21 02/10/21 02/11/21 23:59 23:59 23:59 23:59 Intake Total 1283 / 1283 1367.287 / 4721.332 0168.333 / 7281.357 5955.167 / 1122.167 Output Total 50 / 50 Balance 1283 / 1283 1367.287 / 6527.008 2492.333 / 8396.520 5597.167 / 1072.167 Weight 59.421 kg 59 kg 57.351 kg 59.137 kg Narrative: - Constitutional Mild distress, thin, chronically ill appearing, Significant dementia, wakes briefly to verbal stimuli and is oriented to person and place. Disoriented to time and situation. Briefly follows commands this morning. - *Routine HEENT Exam Head: Present: normocephalic Eye: Present: EOMI, PERRL ENT: Present: mucous membranes moist - *Routine Neck Exam Present: supple. Absent: lymphadenopathy - *Routine Respiratory Exam Present: CTA bilaterally, faint crackles in posterior lung bases, no significant respiratory distress - *Routine Cardiovascular Exam Present: RRR - *Routine Abdominal Exam Present: soft, normoactive bowel sounds. Absent: tenderness - *Routine Rectal Exam Rectal:: deferred - *Routine Genitalia Exam Genitalia:: deferred - *Routine Extremities Exam Absent: cyanosis, clubbing, trace lower extremity edema - *Routine Skin Exam Present: warm. Absent: rash - *Routine Neurological Exam Present: alert, altered mental status (see general exam above) Assessment and Plan (1) ST elevation myocardial infarction (STEMI) Status: Acute Qualifiers: Involved coronary artery: unspecified coronary artery Qualified Code(s): I21.3 - ST elevation (STEMI) myocardial infarction of unspecified site Category: Medical Code(s): I21.3 - ST elevation (STEMI) myocardial infarction of unspecified site (2) Senile dementia Status: Acute Category: Medical Code(s): F03.90 - Unspecified dementia without behavioral disturbance (3) Falls frequently Status: Acute Category: Medical Code(s): R29.6 - Repeated falls (4) Chronic atrial fibrillation Status: Chronic Category: Medical Code(s): I48.20 - Chronic atrial fibrillation, unspecified (5) Hypertension Status: Chronic Category: Medical Code(s): I10 - Essential (primary) hypertension (6) Coronary artery disease Status: Acute Category: Medical Code(s): I25.10 - Atherosclerotic heart disease of [place] coronary artery without angina pectoris (7) LV dysfunction Status: Acute Category: Medical Code(s): I51.9 - Heart disease, unspecified (8) Cardiomyopathy Status: Acute Qualifiers: Cardiomyopathy type: ischemic Qualified Code(s): I25.5 - Ischemic cardiomyopathy Category: Medical Code(s): I42.9 - Cardiomyopathy, unspecified (9) LIB[place] (acute kidney injury) Status
[2021-02-11 10:15] LABS: Basophils % 0.3 % (0.1-2.0); Eosinophils # 0.1 K/mm3 (0.0-0.4); Eosinophils % 0.9 % (0.1-12.0); Hematocrit 50.9 % (37.0-47.0); Hemoglobin 17.1 g/dL (12.2-16.2); Lymphocytes # 1.2 K/mm3 (0.7-4.5); Lymphocytes % 11.5 % (10-50); Mean Corpuscular HGB Conc 33.5 g/dL (31.8-35.4); Mean Corpuscular Hemoglobin 32.3 pg (27.0-31.2); Mean Corpuscular Volume 96.5 fl (81-99); Mean Platelet Volume 7.9 fl (7.4-10.4); Monocytes # 0.4 K/mm3 (0.1-1.0); Monocytes % 4.1 % (1.7-9.3); Neutrophils # 8.8 K/mm3 (1.8-7.8); Neutrophils % 83.2 % (37.0-80.0); Platelet Count 202 K/mm3 (142-424); Red Blood Count 5.28 M/mm3 (4.20-5.40); Red Cell Distribution Width 14.7 % (11.5-17.5); White Blood Count 10.5 K/mm3 (4.8-10.8)
[2021-02-11 10:22] LABS: Chloride 95 mmol/L (98-107); Potassium 3.3 mmoL/L (3.5-5.1); Sodium 133 mmol/L (136-145)
[2021-02-11 10:24] LABS: Blood Urea Nitrogen 44 mg/dl (7-17); Creatinine Clearance Estimated 13 mL/min (50-200); Estimated Glomerular Filt Rate 15 ml/min (>60); GFR (African American) 18 ML/MIN (>60)
[2021-02-11 10:25] LABS: Alanine Aminotransferase 23 U/L (12-78); Albumin Level 3.2 g/dl (3.5-5.0); Albumin/Globulin Ratio 1.1 (1.1-1.8); Alkaline Phosphatase 123 U/L (38-126); Anion Gap 11.3 mEq/L (5-15); Aspartate Amino Transferase 63 U/L (14-36); Bilirubin,Total 0.8 mg/dl (0.2-1.3); Calcium 8.4 mg/dl (8.4-10.2); Carbon Dioxide 30 mmol/L (22.0-30.0); Glucose 228 mg/dl (74-100); Magnesium 1.7 mg/dl (1.6-2.3); Total Protein,Serum 6.2 g/dl (6.3-8.2)
[2021-02-11 10:50] LABS: POC Glucose,Bedside 198 (70-110)
--- NOTE | 2021-02-11 16:22 | PC.NURSE ---
Addendum entered by Lakshmi Acuna RN 02/11/21 18:09: FSBS 63 @ 1721, pt awake, alert and able to follow commands - given one cup of OJ FSBS recheck @ 5612 - 39 Original Note: Pt has rested majority of shift. This AM she was agitated and unpleasant w/ staff, insisting she was putting her clothes on and going home. Staff tried to re-direct pt but she continued to state I don't believe that . She has since that time calmed down and been more cooperative. Son was @ bedside this AM, code status was re-addressed to verify that pt is a FULL CODE. She remains on levophed gtt, currently @ 2 mcg/min. Bed alarm in place for safety. Call raoul w/in reach.
[2021-02-11 20:40] LABS: POC Glucose,Bedside 165 (70-110)
[2021-02-11 20:44] LABS: POC Glucose,Bedside 63 (70-110)
[2021-02-11 20:44] LABS: POC Glucose,Bedside 87 (70-110)
[2021-02-12] VITALS (10 sets, daily range): BP systolic 108–121; BP diastolic 54–74; PULSE 16–84; RESP 12–18; TEMP 36.3–36.6; O2SAT 93–100; BMI 22.9
[2021-02-12 05:57] LABS: POC Glucose,Bedside 191 (70-110)
--- NOTE | 2021-02-12 07:29 | HMH.ACPN2 ---
Internal Medicine - PN: Subj *Date: 02/12/21 *Time: 09:19 Interval history: Ms. Sharma had a decent night. Still making very little urine. Able to wean off Levophed overnight. Poor PO intake. Had some chest discomfort overnight for which morphine was initiated. Somewhat more alert today with orientation to person and place but disoriented to time and situation. Son at bedside, updated of plan and current status. He overall feels she is doing significantly better, discussed that clinically I have concern that that is not the case. She denies chest pain or shortness of breath on exam this morning. Remains quite fatigued. Exam Vital signs and Labs for Last 24 Hours: Temp Pulse Resp BP Pulse Ox 97.4 F L 61 16 110/60 100 02/12/21 04:00 02/12/21 06:00 02/12/21 06:00 02/12/21 06:00 02/12/21 06:00 Laboratory Results - last 24 hr 02/11/21 05:28: POC Glucose 198 H 02/11/21 10:00: WBC 10.5 D, RBC 5.28, Hgb 17.1 H, Hct 50.9 H, MCV 96.5, MCH 32.3 H, MCHC 33.5, RDW 14.7, Plt Count 202, MPV 7.9, Neut % (Auto) 83.2 H, Lymph % (Auto) 11.5, [place] % (Auto) 4.1, Eos % (Auto) 0.9, Baso % (Auto) 0.3, Neut # (Auto) 8.8 H, Lymph # (Auto) 1.2, [place] # (Auto) 0.4, Eos # (Auto) 0.1, Baso # (Auto) 0.0 02/11/21 10:00: Sodium 133 L, Potassium 3.3 L, Chloride 95 L, Carbon Dioxide 30, Anion Gap 11.3, BUN 44 H, Creatinine 3.00 H, Estimated Creat Clear 13, Estimated GFR 15 L*, Est GFR ( Amer) 18 L*, Glucose 228 H, Calcium 8.4, Magnesium 1.7, Total Bilirubin 0.8, AST 63 H, ALT 23 D, Alkaline Phosphatase 123, Total Protein 6.2 L, Albumin 3.2 L, Globulin 3.0, Albumin/Globulin Ratio 1.1 02/11/21 17:21: POC Glucose 63 L 02/11/21 17:53: POC Glucose 87 02/11/21 20:29: POC Glucose 165 H 02/12/21 05:29: POC Glucose 191 H I & O for Last 24 hours: Intake & Output 02/09/21 02/10/21 02/11/21 02/12/21 23:59 23:59 23:59 23:59 Intake Total 1367.287 / 1558.502 7742.333 / 9688.910 0375.517 / 3378.517 824 / 824 Output Total 150 / 150 Balance 1367.287 / 1437.998 1314.333 / 8343.634 4540.517 / 3228.517 824 / 824 Weight 59 kg 57.351 kg 59.137 kg 61.037 kg Narrative: - Constitutional Mild distress, thin, chronically ill appearing, Significant dementia, wakes briefly to verbal stimuli and is oriented to person and place. Disoriented to time and situation. Briefly follows commands this morning. - *Routine HEENT Exam Head: Present: normocephalic Eye: Present: EOMI, PERRL ENT: Present: mucous membranes moist - *Routine Neck Exam Present: supple. Absent: lymphadenopathy - *Routine Respiratory Exam Present: CTA bilaterally, faint crackles in posterior lung bases, no significant respiratory distress - *Routine Cardiovascular Exam Present: RRR - *Routine Abdominal Exam Present: soft, normoactive bowel sounds. Absent: tenderness - *Routine Rectal Exam Rectal:: deferred - *Routine Genitalia Exam Genitalia:: deferred - *Routine Extremities Exam Absent: cyanosis, clubbing, trace lower extremity edema - *Routine Skin Exam Present: warm. Absent: rash - *Routine Neurological Exam Present: alert, altered mental status (see general exam above) Assessment and Plan (1) ST elevation myocardial infarction (STEMI) Status: Acute Qualifiers: Involved coronary artery: unspecified coronary artery Qualified Code(s): I21.3 - ST elevation (STEMI) myocardial infarction of unspecified site Category: Medical Code(s): I21.3 - ST elevation (STEMI) myocardial infarction of unspecified site (2) Senile dementia Status: Acute Category: Medical Code(s): F03.90 - Unspecified dementia without behavioral disturbance (3) Falls frequently Status: Acute Category: Medical Code(s): R29.6 - Repeated falls (4) Chronic atrial fibrillation Status: Chronic Category: Medical Code(s): I48.20 - Chronic atrial fibrillation, unspecified (5) Hypertension Status: Chronic Category: Medical Code(s): I10 - Essential
[2021-02-12 10:20] LABS: Basophils % 0.7 % (0.1-2.0); Eosinophils # 0.1 K/mm3 (0.0-0.4); Eosinophils % 1.6 % (0.1-12.0); Hematocrit 48.4 % (37.0-47.0); Hemoglobin 15.7 g/dL (12.2-16.2); Lymphocytes # 0.8 K/mm3 (0.7-4.5); Mean Corpuscular HGB Conc 32.5 g/dL (31.8-35.4); Mean Corpuscular Hemoglobin 31.8 pg (27.0-31.2); Mean Corpuscular Volume 97.7 fl (81-99); Mean Platelet Volume 8.1 fl (7.4-10.4); Monocytes # 0.4 K/mm3 (0.1-1.0); Monocytes % 5.3 % (1.7-9.3); Neutrophils # 5.4 K/mm3 (1.8-7.8); Neutrophils % 80.5 % (37.0-80.0); Platelet Count 123 K/mm3 (142-424); Red Blood Count 4.95 M/mm3 (4.20-5.40); Red Cell Distribution Width 14.6 % (11.5-17.5); White Blood Count 6.7 K/mm3 (4.8-10.8)
[2021-02-12 10:38] LABS: Anion Gap 9.7 mEq/L (5-15); Blood Urea Nitrogen 52 mg/dl (7-17); Calcium 8.1 mg/dl (8.4-10.2); Carbon Dioxide 26 mmol/L (22.0-30.0); Chloride 97 mmol/L (98-107); Creatinine Clearance Estimated 12 mL/min (50-200); Estimated Glomerular Filt Rate 14 ml/min (>60); GFR (African American) 17 ML/MIN (>60); Glucose 201 mg/dl (74-100); Magnesium 1.9 mg/dl (1.6-2.3); Potassium 4.7 mmoL/L (3.5-5.1); Sodium 128 mmol/L (136-145)
[2021-02-12 11:38] LABS: POC Glucose,Bedside 233 (70-110)
--- NOTE | 2021-02-12 14:58 | PC.NURSE ---
No acute changes noted this shift, patient has been up to chair for most of the day, alert and oriented to person and place only, has been confused, encouraged PO intake with minimal results, pt has had minimal po intake, refusing to eat or drink at meal times, family was at bedside and was able to get patient to drink most of a glucerna, remains on RA, afib per telemetry, peripheral pulses intact, FC discontinued this shift, no s/s of distress noted, vss, will continue to monitor.
[2021-02-12 20:53] LABS: POC Glucose,Bedside 310 (70-110)
[2021-02-12 20:53] LABS: POC Glucose,Bedside 290 (70-110)
[2021-02-13] VITALS: PULSE 70
[2021-02-13 04:00] VITALS: BP 115/80; PULSE 70; PULSE 71; RESP 16; TEMP 36.3; O2SAT 94
[2021-02-13 05:00] VITALS: BMI 23.7
--- NOTE | 2021-02-13 05:49 | PC.NURSE ---
shift summary pts lung sounds are clear with sats maintained 90% or above on room air. pt is alert but confused, only oriented to name. pt has been very uncooperative with staff, by not letting staff complete their jobs, yelling and cursing at us, and continuously trying to get out of bed without assistance. pt denies any pain, nausea, vomiting, or diarrhea.
[2021-02-13 06:27] LABS: POC Glucose,Bedside 123 (70-110)
[2021-02-13 07:07] LABS: Eosinophils # 0.2 K/mm3 (0.0-0.4); Red Cell Distribution Width 14.6 % (11.5-17.5)
--- NOTE | 2021-02-13 07:16 | HMH.ACPN2 ---
Internal Medicine - PN: Subj *Date: 02/13/21 *Time: 08:38 Interval history: Ms. Sharma is very talkative this morning. Continues to refuse nutrition. Nursing attempted to assist with feeding this morning and patient declined eating. States that she has chest burning when she eats. Is currently on Protonix however. No nausea or vomiting. Currently incontinent, voiding and briefs. Blood pressure and heart rate within normal range. Tolerating meds orally. Denies shortness of breath, anginal pain, abdominal pain. Exam Vital signs and Labs for Last 24 Hours: Temp Pulse Resp BP Pulse Ox 97.4 F L 71 16 115/80 94 L 02/13/21 04:00 02/13/21 04:00 02/13/21 04:00 02/13/21 04:00 02/13/21 04:00 Laboratory Results - last 24 hr 02/12/21 10:05: WBC 6.7 D, RBC 4.95, Hgb 15.7, Hct 48.4 H, MCV 97.7, MCH 31.8 H, MCHC 32.5, RDW 14.6, Plt Count 123 L D, MPV 8.1, Neut % (Auto) 80.5 H, Lymph % (Auto) 12.0, [place] % (Auto) 5.3, Eos % (Auto) 1.6, Baso % (Auto) 0.7, Neut # (Auto) 5.4, Lymph # (Auto) 0.8, [place] # (Auto) 0.4, Eos # (Auto) 0.1, Baso # (Auto) 0.0 02/12/21 10:05: Sodium 128 L, Potassium 4.7 D, Chloride 97 L, Carbon Dioxide 26, Anion Gap 9.7, BUN 52 H, Creatinine 3.20 H, Estimated Creat Clear 12, Estimated GFR 14 L*, Est GFR ( Amer) 17 L*, Glucose 201 H, Calcium 8.1 L, Magnesium 1.9 D 02/12/21 11:18: POC Glucose 233 H 02/12/21 16:33: POC Glucose 290 H 02/12/21 20:42: POC Glucose 310 H* 02/13/21 06:17: POC Glucose 123 H I & O for Last 24 hours: Intake & Output 02/10/21 02/11/21 02/12/21 06/01/21 23:59 23:59 23:59 23:59 Intake Total 1545.333 / 2497.942 9849.517 / 3378.517 1895 / 1895 Output Total 150 / 150 350 / 350 Balance 1545.333 / 7446.771 3032.517 / 3228.517 1545 / 1545 Weight 57.351 kg 59.137 kg 61.037 kg 63.049 kg Narrative: - Constitutional No acute distress on room air, thin, chronically ill appearing, Significant dementia, following commands this morning. Interactive to voice - *Routine HEENT Exam Head: Present: normocephalic Eye: Present: EOMI, PERRL ENT: Present: mucous membranes moist - *Routine Neck Exam Present: supple. Absent: lymphadenopathy - *Routine Respiratory Exam Present: CTA bilaterally, no crackles, wheeze, or rhonchi - *Routine Cardiovascular Exam Present: RRR - *Routine Abdominal Exam Present: soft, normoactive bowel sounds. Absent: tenderness - *Routine Extremities Exam Absent: cyanosis, clubbing, trace lower extremity edema - *Routine Skin Exam Present: warm. Absent: rash - *Routine Neurological Exam Present: alert, altered mental status (see general exam above) Assessment and Plan (1) ST elevation myocardial infarction (STEMI) Status: Acute Qualifiers: Involved coronary artery: unspecified coronary artery Qualified Code(s): I21.3 - ST elevation (STEMI) myocardial infarction of unspecified site Category: Medical Code(s): I21.3 - ST elevation (STEMI) myocardial infarction of unspecified site (2) Senile dementia Status: Acute Category: Medical Code(s): F03.90 - Unspecified dementia without behavioral disturbance (3) Falls frequently Status: Acute Category: Medical Code(s): R29.6 - Repeated falls (4) Chronic atrial fibrillation Status: Chronic Category: Medical Code(s): I48.20 - Chronic atrial fibrillation, unspecified (5) Hypertension Status: Chronic Category: Medical Code(s): I10 - Essential (primary) hypertension (6) Coronary artery disease Status: Acute Category: Medical Code(s): I25.10 - Atherosclerotic heart disease of [place] coronary artery without angina pectoris (7) LV dysfunction Status: Acute Category: Medical Code(s): I51.9 - Heart disease, unspecified (8) Cardiomyopathy Status: Acute Qualifiers: Cardiomyopathy type: ischemic Qualified Code(s): I25.5 - Ischemic cardiomyopathy Category: Medical Code(s): I42.9 - Cardiomyopathy, unspecified (9) [place] (
[2021-02-13 07:21] LABS: Chloride 95 mmol/L (98-107); Sodium 127 mmol/L (136-145)
[2021-02-13 07:22] LABS: Potassium 4.2 mmoL/L (3.5-5.1)
[2021-02-13 07:24] LABS: Blood Urea Nitrogen 54 mg/dl (7-17); Creatinine Clearance Estimated 16 mL/min (50-200); Estimated Glomerular Filt Rate 17 ml/min (>60); GFR (African American) 21 ML/MIN (>60)
[2021-02-13 07:25] LABS: Anion Gap 11.2 mEq/L (5-15); Calcium 8.1 mg/dl (8.4-10.2); Carbon Dioxide 25 mmol/L (22.0-30.0); Glucose 128 mg/dl (74-100); Magnesium 1.9 mg/dl (1.6-2.3)
[2021-02-13 07:26] VITALS: BP 108/51; PULSE 64; RESP 18; TEMP 36.6; O2SAT 97
--- NOTE | 2021-02-13 08:44 | HMH.ACPN ---
Internal Medicine - PN: Subj *Date: 02/13/21 *Time: 08:44 Exam Vital signs and Labs for Last 24 Hours: Temp Pulse Resp BP Pulse Ox 97.9 F 64 18 108/51 L 97 02/13/21 07:26 02/13/21 07:26 02/13/21 07:26 02/13/21 07:26 02/13/21 07:26 Laboratory Results - last 24 hr 02/12/21 10:05: WBC 6.7 D, RBC 4.95, Hgb 15.7, Hct 48.4 H, MCV 97.7, MCH 31.8 H, MCHC 32.5, RDW 14.6, Plt Count 123 L D, MPV 8.1, Neut % (Auto) 80.5 H, Lymph % (Auto) 12.0, [place] % (Auto) 5.3, Eos % (Auto) 1.6, Baso % (Auto) 0.7, Neut # (Auto) 5.4, Lymph # (Auto) 0.8, [place] # (Auto) 0.4, Eos # (Auto) 0.1, Baso # (Auto) 0.0 02/12/21 10:05: Sodium 128 L, Potassium 4.7 D, Chloride 97 L, Carbon Dioxide 26, Anion Gap 9.7, BUN 52 H, Creatinine 3.20 H, Estimated Creat Clear 12, Estimated GFR 14 L*, Est GFR ( Amer) 17 L*, Glucose 201 H, Calcium 8.1 L, Magnesium 1.9 D 02/12/21 11:18: POC Glucose 233 H 02/12/21 16:33: POC Glucose 290 H 02/12/21 20:42: POC Glucose 310 H* 02/13/21 06:17: POC Glucose 123 H 02/13/21 06:54: Sodium 127 L, Potassium 4.2, Chloride 95 L, Carbon Dioxide 25, Anion Gap 11.2, BUN 54 H, Creatinine 2.60 H, Estimated Creat Clear 16, Estimated GFR 17 L*, Est GFR ( Amer) 21 L D, Glucose 128 H D, Calcium 8.1 L, Magnesium 1.9 I & O for Last 24 hours: Intake & Output 02/10/21 02/11/21 02/12/21 02/13/21 23:59 23:59 23:59 23:59 Intake Total 1545.333 / 1958.013 3204.517 / 3378.517 1895 / 1895 0 / 0 Output Total 150 / 150 350 / 350 Balance 1545.333 / 4456.256 1835.517 / 3228.517 1545 / 1545 0 / 0 Weight 57.351 kg 59.137 kg 61.037 kg 63.049 kg Assessment and Plan (1) ST elevation myocardial infarction (STEMI) Status: Acute Qualifiers: Involved coronary artery: unspecified coronary artery Qualified Code(s): I21.3 - ST elevation (STEMI) myocardial infarction of unspecified site Category: Medical Code(s): I21.3 - ST elevation (STEMI) myocardial infarction of unspecified site (2) Senile dementia Status: Acute Category: Medical Code(s): F03.90 - Unspecified dementia without behavioral disturbance (3) Falls frequently Status: Acute Category: Medical Code(s): R29.6 - Repeated falls (4) Chronic atrial fibrillation Status: Chronic Category: Medical Code(s): I48.20 - Chronic atrial fibrillation, unspecified (5) Hypertension Status: Chronic Category: Medical Code(s): I10 - Essential (primary) hypertension (6) Coronary artery disease Status: Acute Category: Medical Code(s): I25.10 - Atherosclerotic heart disease of [place] coronary artery without angina pectoris (7) LV dysfunction Status: Acute Category: Medical Code(s): I51.9 - Heart disease, unspecified (8) Cardiomyopathy Status: Acute Qualifiers: Cardiomyopathy type: ischemic Qualified Code(s): I25.5 - Ischemic cardiomyopathy Category: Medical Code(s): I42.9 - Cardiomyopathy, unspecified (9) [place] (acute kidney injury) Status: Acute Category: Medical Code(s): N17.9 - Acute kidney failure, unspecified (10) Nausea and vomiting Status: Acute Category: Medical Code(s): R11.2 - Nausea with vomiting, unspecified (11) Severe protein-calorie malnutrition Status: Acute Category: Medical Code(s): E43 - Unspecified severe protein-calorie malnutrition (12) UTI (urinary tract infection) Status: Acute Category: Medical Code(s): N39.0 - Urinary tract infection, site not specified The patient's infection will respond to the chosen ABx?: Yes Is the patient receiving the right drug, dose, and route?: Yes Could a more targeted ABx be ordered?: No (CONTINUE INVANZ FOR UTI)
[2021-02-13 08:53] LABS: Basophils % 0.4 % (0.1-2.0); Eosinophils % 2.5 % (0.1-12.0); Hematocrit 43.9 % (37.0-47.0); Lymphocytes # 0.8 K/mm3 (0.7-4.5); Lymphocytes % 14.1 % (10-50); Mean Corpuscular HGB Conc 33.3 g/dL (31.8-35.4); Mean Corpuscular Hemoglobin 31.7 pg (27.0-31.2); Mean Corpuscular Volume 95.1 fl (81-99); Mean Platelet Volume 8.3 fl (7.4-10.4); Monocytes # 0.4 K/mm3 (0.1-1.0); Monocytes % 7.5 % (1.7-9.3); Neutrophils # 4.4 K/mm3 (1.8-7.8); Neutrophils % 75.6 % (37.0-80.0); Platelet Count 140 K/mm3 (142-424); Red Blood Count 4.62 M/mm3 (4.20-5.40); White Blood Count 5.8 K/mm3 (4.8-10.8)
[2021-02-13 08:54] LABS: Hemoglobin 14.6 g/dL (12.2-16.2)
--- NOTE | 2021-02-13 10:42 | HMH.SLDYSPHA ---
Speech & Language Evaluation Speech/Language Dysphagia Evaluation Start: 02/13/21 10:35 Freq: ONCE Status: Active Protocol: Document 02/13/21 10:35 CHINO (Rec: 02/13/21 10:42 CHINO [id number]) Dysphagia Assess/Goals/Plan Assessment Date of Evaluation: 02/13/21 Evaluation Type Initial Certification Assessment/Problems Determine least restrictive diet Does Patient Qualify for Service No Qualify/Failure Comment Diet modifications made. Patient showed no overt signs/ symptoms of aspiration. Recommendations PHYSICIAN CERTIFICATION: The specified therapy services are required, authorized, and reviewed every 30 days. Diet Recommendations Mechanical Soft Liquid Type Recommendations Normal/Thin SL Swallow Guidelines Assist w/all meals,Standard Aspiration Prec. Dysphagia Swallow Precautions/Strategies Sitting Upright (90 deg),Small Bites and Sips,Alternate Liquids/Solids Plan Pt/Guardian verbally ack understanding Yes of dx/prognosis/goals G -code Required No Speech & Language HPI Language Primary Language Prydeinig General Information General Current Food Consistancy Dysphagia Mechanical Soft, Ground Meats,Thin Liquids Dentition Edentulous Oxygen Status Room Air Patient Orientation Person Ability to Follow Directions Good Communication Ability Moderate Impairment Dysphagia:Food Presentation Evaluation Food Type Pureed,Mechanical Soft,Liquid, Pudding Dysphagia Evaluation Summary Ms. Sharma was given the following consistencies: thins via straw and open cup, pudding, pureed, and mechanical soft. No overt signs/symptoms noted during evaluation. Patient did report water makes it burn right here and pointed to her lower esophagus. CM notified about bruning and report they will pass it along to drWilbert STAHL not recommended. If problem continues a barium swallow is recommended. Stroke Dysphagia Assessment PHYSICIAN CERTIFICATION: I certify the specified therapy services for Arleth Sharma are required, authorized, and reviewed every 30 days.
[2021-02-13 11:07] VITALS: BP 105/65; PULSE 68; RESP 18; TEMP 36.5; O2SAT 96
--- NOTE | 2021-02-13 13:37 | SW/DCPLANNER ---
MADE A CALL TO THE SON OF THIS PATIENT TODAY TO DISCUSS DISCHARGE PLANNING: PHYSICAL THERAPY SAW PATIENT TODAY AND HAS RECOMMENDED SKILLED PLACEMENT FOR HER, SPEECH THERAPISTS SAW PATIENT AND STATED HER SWALLOWING WAS OK BUT PATIENT COMPLAINED OF A BURNING IN HER THROAT AND CHEST WHILE DRINKING WATER... WILL SHARE THIS WITH DR DIAS, WAITING TO HEAR FROM SON TO SEE IF HE IS INTERESTED IN PLACEMENT OR IF 24/ CARE AT HOME IS AVAILABLE... PATIENT IS CLOSE TO A DISPOSITION...
[2021-02-13 14:59] LABS: POC Glucose,Bedside 168 (70-110)
[2021-02-13 15:11] VITALS: BP 110/53; PULSE 72; RESP 18; TEMP 36.5; O2SAT 93
--- NOTE | 2021-02-13 19:30 | PC.NURSE ---
Pt continues to be confused throughout shift, attempting to get out of bed multiple times. Bed safety remains in place. Pt was assisted x2 up to chair, tolerated well, she did sit up for a few hours. PO intake encouraged, staff have attempted to feed pt at all meals with little luck. She remains on room air. VSS. Incontinent of B&B. No BM this shift. Son has called once this shift, to check on her, updated on plan of care. Pt remains full code.
[2021-02-13 20:00] VITALS: BP 112/64; PULSE 80; RESP 16; TEMP 36.4; O2SAT 96
[2021-02-13 20:01] LABS: POC Glucose,Bedside 191 (70-110)
[2021-02-14] VITALS: BP 132/71; PULSE 66; RESP 16; TEMP 36.4; O2SAT 96
[2021-02-14 00:57] LABS: POC Glucose,Bedside 148 (70-110)
--- NOTE | 2021-02-14 03:19 | PC.NURSE ---
A/O to self. Pt did not sleep well this shift. pt has tried to get out of bed many times and has been redirected. pt was trans from chair to bed with 2 assist. pt has had very little oral intake. IV patent, VSS, no concerns at this time.
[2021-02-14 04:00] VITALS: BP 116/62; PULSE 84; RESP 19; TEMP 36.7; O2SAT 96
[2021-02-14 05:00] VITALS: BMI 23.8
[2021-02-14 06:02] LABS: POC Glucose,Bedside 138 (70-110)
[2021-02-14 08:00] VITALS: BP 131/59; PULSE 75; RESP 18; TEMP 36.6; O2SAT 93
--- NOTE | 2021-02-14 08:10 | HMH.ACPN2 ---
Internal Medicine - PN: Subj *Date: 02/14/21 *Time: 08:10 Interval history: Patient remains with subacute/chronic dementia afflicted with delirium in the hospital. Has been able to eat just a few bites. Physiologically and metabolically seems to be stable. Exam Vital signs and Labs for Last 24 Hours: Temp Pulse Resp BP Pulse Ox 98.0 F 84 19 116/62 96 02/14/21 04:00 02/14/21 04:00 02/14/21 04:00 02/14/21 04:00 02/14/21 04:00 Laboratory Results - last 24 hr 02/13/21 08:43: WBC 5.8, RBC 4.62, Hgb 14.6, Hct 43.9, MCV 95.1, MCH 31.7 H, MCHC 33.3, RDW 14.6, Plt Count 140 L, MPV 8.3, Neut % (Auto) 75.6, Lymph % (Auto) 14.1, Holmes % (Auto) 7.5, Eos % (Auto) 2.5, Baso % (Auto) 0.4, Neut # (Auto) 4.4, Lymph # (Auto) 0.8, Holmes # (Auto) 0.4, Eos # (Auto) 0.2, Baso # (Auto) 0.0 02/13/21 11:45: POC Glucose 168 H 02/13/21 17:32: POC Glucose 191 H 02/13/21 21:52: POC Glucose 148 H 02/14/21 05:55: POC Glucose 138 H I & O for Last 24 hours: Intake & Output 02/11/21 02/12/21 02/13/21 02/14/21 11:59 11:59 11:59 11:59 Intake Total 1380.167 / 9045.005 8333.35 / 2306.35 1081 / 1081 2478 / 2478 Output Total 50 / 50 100 / 100 350 / 350 Balance 1330.167 / 7943.727 9145.35 / 2206.35 731 / 731 2478 / 2478 Weight 130 lb 6 oz 134 lb 9 oz 139 lb 140 lb Narrative: Patient is comfortable from a respiratory standpoint. Breathing easily. Moaning and poorly responsive to stimuli. Lungs have fairly good air entry. Heart rate regular without murmurs. Abdomen soft, no significant edema. Other than age-related skin changes no bruising or trauma. Neurologically demented and afflicted with delirium type changes but no focal deficits. Assessment and Plan (1) ST elevation myocardial infarction (STEMI) Status: Acute Qualifiers: Involved coronary artery: unspecified coronary artery Qualified Code(s): I21.3 - ST elevation (STEMI) myocardial infarction of unspecified site Category: Medical Code(s): I21.3 - ST elevation (STEMI) myocardial infarction of unspecified site (2) Senile dementia Status: Acute Category: Medical Code(s): F03.90 - Unspecified dementia without behavioral disturbance (3) Falls frequently Status: Acute Category: Medical Code(s): R29.6 - Repeated falls (4) Chronic atrial fibrillation Status: Chronic Category: Medical Code(s): I48.20 - Chronic atrial fibrillation, unspecified (5) Hypertension Status: Chronic Category: Medical Code(s): I10 - Essential (primary) hypertension (6) Coronary artery disease Status: Acute Category: Medical Code(s): I25.10 - Atherosclerotic heart disease of [place] coronary artery without angina pectoris (7) LV dysfunction Status: Acute Category: Medical Code(s): I51.9 - Heart disease, unspecified (8) Cardiomyopathy Status: Acute Qualifiers: Cardiomyopathy type: ischemic Qualified Code(s): I25.5 - Ischemic cardiomyopathy Category: Medical Code(s): I42.9 - Cardiomyopathy, unspecified (9) LIBERTY (acute kidney injury) Status: Acute Category: Medical Code(s): N17.9 - Acute kidney failure, unspecified (10) Nausea and vomiting Status: Acute Category: Medical Code(s): R11.2 - Nausea with vomiting, unspecified (11) Severe protein-calorie malnutrition Status: Acute Category: Medical Code(s): E43 - Unspecified severe protein-calorie malnutrition (12) UTI (urinary tract infection) Status: Acute Category: Medical Code(s): N39.0 - Urinary tract infection, site not specified - Assessment and plan all Dx Assessment and Plan for all problems:: Significant cardiomyopathy, vascular disease, advanced age, dementia with subacute/hospital delirium. Low-dose Risperdal for safety issues and to try to reorient her to help her eat. Patient is going to be unable to go home in her previous environment given her level of nursing care she requires. Son has vacillated between palliative care an
[2021-02-14 08:34] LABS: Basophils % 0.5 % (0.1-2.0); Eosinophils # 0.2 K/mm3 (0.0-0.4); Eosinophils % 2.4 % (0.1-12.0); Hematocrit 41.1 % (37.0-47.0); Hemoglobin 14.1 g/dL (12.2-16.2); Lymphocytes # 0.9 K/mm3 (0.7-4.5); Lymphocytes % 14.3 % (10-50); Mean Corpuscular HGB Conc 34.4 g/dL (31.8-35.4); Mean Corpuscular Volume 93.1 fl (81-99); Mean Platelet Volume 8.5 fl (7.4-10.4); Monocytes # 0.4 K/mm3 (0.1-1.0); Monocytes % 6.4 % (1.7-9.3); Neutrophils # 4.7 K/mm3 (1.8-7.8); Neutrophils % 76.4 % (37.0-80.0); Platelet Count 162 K/mm3 (142-424); Red Blood Count 4.42 M/mm3 (4.20-5.40); Red Cell Distribution Width 14.7 % (11.5-17.5); White Blood Count 6.1 K/mm3 (4.8-10.8)
[2021-02-14 08:43] LABS: Anion Gap 4.9 mEq/L (5-15); Blood Urea Nitrogen 47 mg/dl (7-17); Calcium 8.2 mg/dl (8.4-10.2); Carbon Dioxide 29 mmol/L (22.0-30.0); Chloride 99 mmol/L (98-107); Creatinine Clearance Estimated 23 mL/min (50-200); Estimated Glomerular Filt Rate 27 ml/min (>60); GFR (African American) 32 ML/MIN (>60); Glucose 149 mg/dl (74-100); Magnesium 1.9 mg/dl (1.6-2.3); Potassium 3.9 mmoL/L (3.5-5.1); Sodium 129 mmol/L (136-145)
--- NOTE | 2021-02-14 10:28 | PC.NURSE ---
Pt max assist x2 up to chair w/ help of PT this time. Currently sitting up in chair, safety in place. Tolerating activity well.
[2021-02-14 11:29] LABS: POC Glucose,Bedside 181 (70-110)
--- NOTE | 2021-02-14 11:30 | CARE MANAGER ---
Spoke with son, Natanael, in regards to patient's condition. Patient is eating minimally and not participating in therapy. Agrees with Hospice and requests placement for his mother. He will be here within a couple hours and would like to meet with Hospice. TRACIE Medeiros, BSN
[2021-02-14 11:42] VITALS: BP 108/58; PULSE 75; RESP 17; TEMP 36.3; O2SAT 92
--- NOTE | 2021-02-14 11:55 | SW/DCPLANNER ---
Addendum entered by Trisha Daniels 02/14/21 14:33: PATIENT WAS ACCEPTED TO [facility] WITH HOSPICE AND WILL DISCHARGE THERE THIS AFTERNOON...SON IS AT BEDSIDE WITH HOSPICE NURSE AND HE IS IN AGREEMENT OF THE PLAN... Original Note: SENT A HOSPICE REFERRAL TO [facility] PER SON REQUEST... MS SILVA IS GOING GO NEED PLACEMENT UNDER HOSPICE WITH MEDICAID HER PAYOR SOURCE FOR ROOM AND BOARD.. SON WILL BE HERE THIS AFTERNOON TO SPEAK WITH HOSPICE AND WORK TOWARD A PLAN FOR LONG-TERM PLACEMENT...
--- NOTE | 2021-02-14 15:06 | HMH.DCSUM ---
General - General Admission date:: 02/07/21 Discharge date: 02/14/21 HPI HPI: 85-year-old white female with significant dementia, overall frailty and recent fdc stay for frequent falls who was at home in her normal state of compromised health when she had some chest pain. Brought to the emergency department and EKG triggered a STEMI alert and she was taken to the [facility]. Several stents were placed. Please refer to the cardiology note for details. This morning patient is pleasant but has been incontinent of urine. Does not complain of chest pain or shortness of air. Her son who is her primary seismic prospecting observer is not here this morning. Hospital Course Hospital Course: Patient was sent from the emergency department to the [facility] for a STEMI alert, based on the wishes of her son in spite of the fact she is 85 years old and is extremely frail. The procedure went well, and stents were placed with good perfusion results and revascularization. The patient was transferred to the second floor in fairly good condition. Unfortunately over the next couple of days she had increasing problems with p.o. intake, functional decline issues and became extremely dehydrated and stopped eating. Labs and other testing were nondiagnostic. Echocardiogram showed markedly diminished ejection fraction. Multiple discussions with the son were held, he did agree to changing CODE STATUS to DNR and transitioning to hospice care. Hospice accepted the patient and she will be transition to the [facility] today. Prognosis is poor, we will follow her on our routine rounds at the [facility]. Objective Vital signs: Temp Pulse Resp BP Pulse Ox 97.3 F L 75 17 108/58 L 92 L 02/14/21 11:42 02/14/21 11:42 02/14/21 11:42 02/14/21 11:42 02/14/21 11:42 mild distress, cachectic, agitated Comments: Completely disoriented... delirium as noted - *Routine HEENT Exam Head: Present: normocephalic Eye: Present: EOMI, PERRL ENT: Present: mucous membranes dry - *Routine Neck Exam Present: supple - *Routine Respiratory Exam Present: decreased breath sounds, CTA bilaterally - *Routine Cardiovascular Exam Present: RRR, murmur - *Routine Abdominal Exam Present: soft, normoactive bowel sounds. Absent: tenderness - *Routine Extremities Exam Present: cyanosis, edema, pallor. Absent: clubbing - *Routine Skin Exam Present: warm. Absent: rash - *Routine Neurological Exam Present: altered mental status, moving all extremities - Detailed Eye Exam Eyelids: Bilateral normal inspection Results Labs on day of discharge: Labs from last 24 hours 02/14/21 02/14/21 02/14/21 11:21 07:42 07:42 WBC 6.1 RBC 4.42 Hgb 14.1 Hct 41.1 MCV 93.1 MCH 32.0 H MCHC 34.4 RDW 14.7 Plt Count 162 MPV 8.5 Neut % (Auto) 76.4 Lymph % (Auto) 14.3 Jenkins % (Auto) 6.4 Eos % (Auto) 2.4 Baso % (Auto) 0.5 Neut # (Auto) 4.7 Lymph # (Auto) 0.9 Jenkins # (Auto) 0.4 Eos # (Auto) 0.2 Baso # (Auto) 0.0 Sodium 129 L Potassium 3.9 Chloride 99 Carbon Dioxide 29 Anion Gap 4.9 L BUN 47 H Creatinine 1.80 H D Estimated Creat Clear 23 Estimated GFR 27 L Est GFR ( Amer) 32 L D Glucose 149 H POC Glucose 181 H Calcium 8.2 L Magnesium 1.9 02/14/21 02/13/21 02/13/21 05:55 21:52 17:32 WBC RBC Hgb Hct MCV MCH MCHC RDW Plt Count MPV Neut % (Auto) Lymph % (Auto) Jenkins % (Auto) Eos % (Auto) Baso % (Auto) Neut # (Auto) Lymph # (Auto) Jenkins # (Auto) Eos # (Auto) Baso # (Auto) Sodium Potassium Chloride Carbon Dioxide Anion Gap BUN Creatinine Estimated Creat Clear Estimated GFR Est GFR ( Amer) Glucose POC Glucose 138 H 148 H 191 H Calcium Magnesium DS: Diagnosis - Discharge Di
--- NOTE | 2021-02-14 15:57 | PC.NURSE ---
Report called to Jolie @ [facility] @ [phone]. Sami made aware of transfer @ [phone]
[2021-02-14 17:46] LABS: POC Glucose,Bedside 137 (70-110)
== END 2021-02-14 16:45 | disposition hospice, inpatient (51) | DRG 246 ==
LOC: ER 21:32 → SDC 21:44 → 2ND 02-08 08:26
PROVIDERS: Internal Medicine Adolescent Medicine; Admitting Provider Internal Medicine Adolescent Medicine; Emergency Provider Emergency Medicine; PCP Internal Medicine Adolescent Medicine; Referring Provider Internal Medicine; Visit Provider Internal Medicine Adolescent Medicine
PROC: 027137Z Dilation of Coronary Artery, Two Arteries with Four or More Drug-eluting Intraluminal Devices, Percutaneous Approach (ICD-10-PCS; principal; 2021-02-07 21:20)
DX: I21.02 ST elevation (STEMI) myocardial infarction involving left anterior descending coronary artery (principal); E43 Unspecified severe protein-calorie malnutrition; I48.20 Chronic atrial fibrillation, unspecified; I13.0 Hypertensive heart and chronic kidney disease with heart failure and stage 1 through stage 4 chronic kidney disease, or unspecified chronic kidney disease; N39.0 Urinary tract infection, site not specified; N17.9 Acute kidney failure, unspecified; B37.0 Candidal stomatitis; Z68.23 Body mass index [BMI] 23.0-23.9, adult; I50.9 Heart failure, unspecified; I25.5 Ischemic cardiomyopathy; N18.9 Chronic kidney disease, unspecified; Z66 Do not resuscitate; R29.6 Repeated falls; E11.22 Type 2 diabetes mellitus with diabetic chronic kidney disease; Z79.4 Long term (current) use of insulin; I25.10 Atherosclerotic heart disease of native coronary artery without angina pectoris; Z79.899 Other long term (current) drug therapy; F03.90 Unspecified dementia, unspecified severity, without behavioral disturbance, psychotic disturbance, mood disturbance, and anxiety; K21.9 Gastro-esophageal reflux disease without esophagitis; Z88.0 Allergy status to penicillin
CPT/HCPCS: 36415; 71045; 80048; 80053; 80061; 81001; 82962; 83735; 84484; 85007; 85025; 85347; 87581; 87633; 87798; 92610; 92928; 92941; 93005; 93306; 93458; 96374; 97110; 97116; 97165; 97530; 97535; 99152; 99153; 99284; C1725; C1769; C1874; C1876; C9600; C9606; G0378; J1335; J1644; J2405; Q9967